=== PATIENT | female | born 1995 | race Caucasian/White ===

== ENCOUNTER 2017-02-02 11:12 | Emergency (ER) | payer MEDICAID ==
[2017-02-02] MEDS ORDERED: ACETAMINOPHEN 325 MG TABLET PO ONE (11:45)
--- NOTE | 2017-02-02 11:46 | ER Document Report ---
ED Medical Screen (RME) - General Chief Complaint: Vaginal Bleeding Stated Complaint: VAGINAL BLEEDING Time seen by provider: 11:45 Mode of Arrival: Ambulatory Information source: Patient Notes: 21-year-old started having left lower pelvic cramping and vaginal bleeding on Thursday. She was seen at [facility]. She was put in a room and told that she had ectopic she left before completing the visit. No ultrasound was done. She had a positive home test 2 weeks ago. No dysuria. TRAVEL OUTSIDE OF THE [place] IN LAST 30 DAYS: No - Related Data Allergies/Adverse Reactions: hydrocodone Allergy (Verified 02/02/17 11:24) Past Medical History Renal/ Medical History: Denies: Hx Peritoneal Dialysis GI Medical History: Reports: Hx Gastroesophageal Reflux Disease, Hx Hepatitis - Hepatitis C Musculoskeltal Medical History: Reports Hx Musculoskeletal Deformity, Reports Hx Musculoskeletal Trauma Psychiatric Medical History: Reports: Hx Depression Infectious Medical History: Reports: Hx Hepatitis - Hepatitis C - Immunizations Immunizations up to date: Yes Hx Diphtheria, Pertussis, Tetanus Vaccination: Yes - states at age 16- Physical Exam - Vital signs Vitals: Temp Pulse Resp BP Pulse Ox 98.5 F 74 18 147/95 H 98 02/02/17 11:26 02/02/17 11:26 02/02/17 11:26 02/02/17 11:26 02/02/17 11:26 Course - Vital Signs Vital signs: Temp Pulse Resp BP Pulse Ox 98.5 F 74 18 147/95 H 98 02/02/17 11:26 02/02/17 11:26 02/02/17 11:26 02/02/17 11:26 02/02/17 11:26
[2017-02-02 12:23] LABS: ABSOLUTE EOSINOPHILS # (AUTO) 0.1 10^3/uL (0.0-0.6); ABSOLUTE MONOCYTES (AUTO) 0.5 10^3/uL (0.1-1.4); ABSOLUTE NEUT (AUTO) 7.3 10^3/uL (1.7-8.2); BASOPHILS % (AUTO) 0.3 % (0-2); EOSINOPHILS % (AUTO) 1.3 % (0-6); HEMATOCRIT 33.1 % (36.0-47.0); HEMOGLOBIN 11.4 g/dL (12.0-15.5); HGB HCT DIFFERENCE 1.1; LYMPHOCYTES % (AUTO) 20.2 % (13-45); MEAN CORPUSCULAR HEMOGLOBIN 30.4 pg (27.0-33.4); MEAN CORPUSCULAR HGB CONC 34.5 g/dL (32.0-36.0); MEAN CORPUSCULAR VOLUME 88 fl (80-97); MONOCYTES % (AUTO) 4.8 % (3-13); RED BLOOD COUNT 3.76 10^6/uL (3.72-5.28); RED CELL DISTRIBUTION WIDTH 13.4 % (11.5-14.0); SEGMENTED NEUTROPHILS % (AUTO) 73.4 % (42-78); WHITE BLOOD COUNT 9.9 10^3/uL (4.0-10.5)
--- NOTE | 2017-02-02 12:23 | ER Document Report ---
ED General - General Mode of Arrival: Ambulatory Information source: Patient, [facility] Records TRAVEL OUTSIDE OF THE [place] IN LAST 30 DAYS: No - HPI Patient complains to provider of: Vaginal Bleeding Onset: Other - 01/31/2017 Onset/Duration: Sudden, Persistent Associated symptoms: Other - Abdominal Cramping <TOMMY MELTON - Last Filed: 02/02/17 12:33> <FILIPE SAUL - Last Filed: 02/02/17 15:21> - General Chief Complaint: Vaginal Bleeding Stated Complaint: VAGINAL BLEEDING Notes: Patient is a 21-year-old female, with history of smoking, irregular periods , and hepatitis C, presenting to the emergency department concerned of vaginal bleeding onset 01/31/2017. Patient describes the bleeding as dark blood with clotting. The patient was seen at [facility], but left after 3 hours because she felt that they did not care about her. Patient attempted to get an appointment with her S[facility], but there were no available appointments. Now patient is here at [facility] trying to figure out what is going on. Patient states that she was told it was probably an ectopic while in the hospital and [facility], but she did not have an ultrasound performed. Patient complains of cramping along with the bleeding. (TOMMY MELTON) - Related Data Allergies/Adverse Reactions: hydrocodone Allergy (Verified 02/02/17 12:27) Past Medical History - General Information source: Patient Last Menstrual Period: unknown - Social History Smoking Status: Current Every Day Smoker Cigarette use (# per day): Yes - one half pack per day Family History: Arthritis, CVA, Malignancy, Other Patient has suicidal ideation: No Patient has homicidal ideation: No GI Medical History: Reports: Hx Gastroesophageal Reflux Disease, Hx Hepatitis - Hepatitis C Musculoskeltal Medical History: Reports Hx Musculoskeletal Deformity, Reports Hx Musculoskeletal Trauma Psychiatric Medical History: Reports: Hx Depression Infectious Medical History: Reports: Hx Hepatitis - Hepatitis C - Immunizations Immunizations up to date: Yes Hx Diphtheria, Pertussis, Tetanus Vaccination: Yes - states at age 16- <TOMMY MELTON - Last Filed: 02/02/17 12:33> Review of Systems - Review of Systems Constitutional: No symptoms reported EENT: No symptoms reported Cardiovascular: No symptoms reported Respiratory: No symptoms reported Gastrointestinal: See HPI, Abdominal pain - Cramping left lower quadrant Genitourinary: No symptoms reported Female Genitourinary: See HPI, Vaginal bleeding - Dark with clotting Musculoskeletal: No symptoms reported Skin: No symptoms reported Hematologic/Lymphatic: No symptoms reported Neurological/Psychological: No symptoms reported -: Yes All other systems reviewed and negative <TOMMY MELTON - Last Filed: 02/02/17 12:33> Physical Exam - General General appearance: Appears well, Alert - HEENT Head: Normocephalic, Atraumatic Eyes: Normal Pupils: PERRL - Respiratory Respiratory status: No respiratory distress Chest status: Nontender Breath sounds: Normal Chest palpation: Normal - Cardiovascular Rhythm: Regular Heart sounds: Normal auscultation Murmur: No - Abdominal Inspection: Gravid female Distension: Other - Gas sounds upper abdomen Tenderness: Tender - Lower abdominal tenderness to palpation, firm - Back Back: Normal, Nontender - Extremities General upper extremity: Normal inspection, Nontender General lower extremity: Normal inspection, Nontender - Neurological Neuro grossly intact: Yes Cognition: Normal Orientation: AAOx4 Wells Coma Scale Eye Opening: Spontaneous Miko Coma Scale Verbal: Oriented Wells Coma Scale Motor: Obeys Commands Wells Coma Scale Total: 15 Speech: Normal - Psychological Associated symptoms: Normal affect, Normal mood - Skin Skin Temperature: Warm Skin Moisture: Dry Skin Color: Normal <TOMMY MELTON - Last Filed: 02/02/17 12:33> Course - Laboratory Result Diagrams: 02/02/17 12:00 <TOMMY MELTON - Last Filed: 02/02/17 12:33> - Laboratory Result Diagrams: 02/02/17 12:00 <FILIPE SAUL - Last Filed: 02/02/17 15:21> - Vital Signs Vital signs: Temp Pulse Resp BP Pulse Ox 98.5 F 74 18 147/95 H 98 02/02/17 11:26 02/02/17 11:26 02/02/17 11:26 02/02/17 11:26 02/02/17 11:26 - Laboratory Laboratory results interpreted by de: 02/02/17 02/02/17 02/02/17 12:00 12:00 12:05 Hgb 11.4 L Hct 33.1 L Beta HCG, Quant 49651.00 H Urine Protein 30 H Ur Leukocyte Esterase SMALL H Discharge <TOMMY MELTON - Last Filed: 02/02/17 12:33> <FILIPE SAUL - Last Filed: 02/02/17 15:21> - Discharge Clinical Impression: 16 weeks gestation of , Vaginal bleeding before 22 weeks gestation, Rh negative status during in second trimester Condition: Stable Disposition: HOME, SELF-CARE Additional Instructions: Your ultrasound shows a 16 week 3 day intrauterine . There were no other abnormalities seen on ultrasound. You should follow-up this week with [facility] for care and recheck your bleeding. RETURN TO THE EMERGENCY ROOM IF ANY NEW OR WORSENING SYMPTOMS. Scribe Attestation: 02/02/17 15:21 I personally performed the services described in the documentation, reviewed and edited the documentation which was dictated to the scribe in my presence, and it accurately records my words and actions. (FILIPE SAUL) Scribe Documentation - Scribe Written by Mae:: Tommy Melton 02/02/2017 1222 acting as scribe for :: Marianne <TOMMY MELTON - Last Filed: 02/02/17 12:33>
[2017-02-02 12:24] LABS: ADD ON TESTING BLD IN LAB ACKNOWLEDGE
[2017-02-02 12:35] LABS: APPEARANCE,URINE SLIGHTLY-CLOUDY; BILIRUBIN,URINE NEGATIVE (NEGATIVE); GLUCOSE, URINE NEGATIVE (NEGATIVE); KETONES,URINE NEGATIVE (NEGATIVE); LEUKOCYTE ESTERASE,URINE SMALL (NEGATIVE); NITRITE,URINE NEGATIVE (NEGATIVE); PROTEIN,URINE 30 mg/dL (NEGATIVE); URINE SPECIFIC GRAVITY 1.019; UROBILINOGEN,URINE NEGATIVE mg/dL (<2.0)
[2017-02-02 15:49] VITALS: BP 117/78
== END 2017-02-02 15:40 | disposition home or self-care (01) ==
LOC: ER 11:12
DX: O20.9 Hemorrhage in early pregnancy, unspecified (principal); O36.0920 Maternal care for other rhesus isoimmunization, second trimester, not applicable or unspecified; O26.892 Other specified pregnancy related conditions, second trimester; R10.32 Left lower quadrant pain; O99.332 Smoking (tobacco) complicating pregnancy, second trimester; F17.210 Nicotine dependence, cigarettes, uncomplicated; Z3A.16 16 weeks gestation of pregnancy; Z86.19 Personal history of other infectious and parasitic diseases; Z88.5 Allergy status to narcotic agent
CPT/HCPCS: 99284; 86900; 86901; 36415; 87086; 86850; 84702; 85025; 87088; 81001; 87186; 76805; J2790

== ENCOUNTER → 2017-03-25 | Outpatient (CLI) | payer MEDICAID ==
--- NOTE | 2017-03-25 16:55 | RADIOLOGY REPORT (SQ) ---
EXAM DESCRIPTION: U/S OB 14+ TRNABD 1GES W/O DOP COMPLETED DATE/TIME: 03/25/2017 4:24 pm REASON FOR STUDY: Z34.82 ENCOUNTER FOR SUPRVSN OF NORMAL , SECOND TRI COMPARISON: 02/02/2017 TECHNIQUE: Static and Dynamic grayscale imaging performed of gravid uterus using transabdominal appr oach. Additional selected color Doppler and spectral images recorded. All stored on PACS. LIMITATIONS: None. FINDINGS: EGA: 23 weeks 2 days. GAGE: 07/20/2017. EFW: 568 g. PERCENTILE: 34 is JOSIAS: Largest pocket is 3.4 cm. PLACENTA: Posterior location. PRESENTATION: Breech. ANATOMY: HEART RATE: 152 beats per minute. FOUR CHAMBER HEART: Visualized. THREE VESSEL CORD: Yes. CORD INSERTION: Visualized. KIDNEYS AND BLADDER: Visualized. Appear normal. STOMACH: Visualized. Appears normal. SPINE: Normal as visualized. BRAIN AND LATERAL VENTRICLES: Visualized. Appear normal. OTHER: No other significant finding. MATERNAL ADNEXA: Not visualized. CERVICAL LENGTH: 2.9 cm. Closed. OTHER: No other significant finding. IMPRESSION: LIVING INTRAUTERINE . ESTIMATED GESTATIONAL AGE 23 WEEKS 2 DAYS. NO VISUALIZED ANOMALIES. Trimester of : Second trimester - 13 weeks 1 day to 27 weeks 6 days. TECHNICAL DOCUMENTATION: JOB ID: [id number]- All Rights Reserved
== END ==
LOC: RAD 14:42
PROVIDERS: ATTEND Nurse Practitioner Women's Health
DX: Z34.82 Encounter for supervision of other normal pregnancy, second trimester (principal)
CPT/HCPCS: 76805

== ENCOUNTER 2017-06-29 21:15 | Outpatient (CLI) | payer MEDICAID ==
[2017-06-29 21:43] LABS: APPEARANCE,URINE CLOUDY; BILIRUBIN,URINE NEGATIVE (NEGATIVE); GLUCOSE, URINE NEGATIVE (NEGATIVE); KETONES,URINE NEGATIVE (NEGATIVE); LEUKOCYTE ESTERASE,URINE SMALL (NEGATIVE); NITRITE,URINE NEGATIVE (NEGATIVE); PROTEIN,URINE NEGATIVE (NEGATIVE)
[2017-06-29 22:01] LABS: URINE BARBITURATES SCREEN NEGATIVE; URINE METHADONE SCREEN NEGATIVE; URINE OPIATES LOW NEGATIVE; URINE PHENCYCLIDINE SCREEN NEGATIVE
== END 2017-06-29 23:19 | disposition home or self-care (01) ==
LOC: LC 21:15
PROVIDERS: ATTEND Student in an Organized Health Care Education/Training Program
PROC: 4A1HXCZ Monitoring of Products of Conception, Cardiac Rate, External Approach (ICD-10-PCS; principal; 2017-06-29)
DX: O36.8130 Decreased fetal movements, third trimester, not applicable or unspecified (principal); O46.93 Antepartum hemorrhage, unspecified, third trimester; Z3A.37 37 weeks gestation of pregnancy
CPT/HCPCS: 80307; 81005

== ENCOUNTER 2017-07-13 05:22 | Inpatient (IN) | payer MEDICAID ==
--- NOTE | 2017-07-13 05:28 | Non Stress Test Report ---
Non Stress Test Datetime Report Generated by CPN: 07/13/2017 05:28 DEMOGRAPHIC EGA NST: 37.3 INDICATION Indication for Study: Decreased Movement; Ordered by Provider MONITORING Monitor Explained: Monitor Explained; Test Explained; Patient Verbalized Understanding Time on Monitor: 06/29/2017 21:30 Time off Monitor: 06/29/2017 23:14 NST Duration: 104 NST INTERVENTIONS NST Interventions: PO Hydration; Reposition Patient BABY A: [id number] BABY A Movement : Present Contraction Frequency : none FHR Baseline : 125 Accelerations : 15X15 Decelerations : None Variability : Moderate 6-25bpm NST Review: Meets Criteria for Reactive NST NST Review and Verified By : Skylar JuradoGabe RN NST Results: Reactive NST REPORT Report Trigger: Send Report
[2017-07-13 06:01] LABS: APPEARANCE,URINE CLOUDY; BILIRUBIN,URINE NEGATIVE (NEGATIVE); GLUCOSE, URINE NEGATIVE (NEGATIVE); KETONES,URINE NEGATIVE (NEGATIVE); LEUKOCYTE ESTERASE,URINE SMALL (NEGATIVE); NITRITE,URINE NEGATIVE (NEGATIVE); PROTEIN,URINE NEGATIVE (NEGATIVE); URINE SPECIFIC GRAVITY 1.015; UROBILINOGEN,URINE NEGATIVE mg/dL (<2.0)
[2017-07-13 06:32] LABS: URINE BARBITURATES SCREEN NEGATIVE; URINE METHADONE SCREEN NEGATIVE; URINE OPIATES LOW NEGATIVE; URINE PHENCYCLIDINE SCREEN NEGATIVE
[2017-07-13] MEDS ORDERED: RINGERS SOLUTION,LACTATED 1,000 ML IV ONE (06:55)
[2017-07-13] MEDS ORDERED: PENICILLIN G POTASSIUM 5,000,000 UNIT in DEXTROSE 5%-WATER 100 ML IV ONE (06:55)
[2017-07-13] MEDS ORDERED: PENICILLIN G-K 5 MILLION UNIT VIAL ONE ×2 (07:17→11:11)
[2017-07-13 07:29] LABS: ABSOLUTE BASOPHILS # (AUTO) 0.1 10^3/uL (0.0-0.2); ABSOLUTE EOSINOPHILS # (AUTO) 0.1 10^3/uL (0.0-0.6); ABSOLUTE LYMPHOCYTES (AUTO) 2.9 10^3/uL (0.5-4.7); ABSOLUTE MONOCYTES (AUTO) 0.7 10^3/uL (0.1-1.4); ABSOLUTE NEUT (AUTO) 15.1 10^3/uL (1.7-8.2); BASOPHILS % (AUTO) 0.6 % (0-2); EOSINOPHILS % (AUTO) 0.6 % (0-6); HEMATOCRIT 33.3 % (36.0-47.0); HEMOGLOBIN 11.5 g/dL (12.0-15.5); HGB HCT DIFFERENCE 1.2; LYMPHOCYTES % (AUTO) 15.3 % (13-45); MEAN CORPUSCULAR HEMOGLOBIN 29.6 pg (27.0-33.4); MEAN CORPUSCULAR HGB CONC 34.7 g/dL (32.0-36.0); MEAN CORPUSCULAR VOLUME 85 fl (80-97); MONOCYTES % (AUTO) 3.8 % (3-13); RED BLOOD COUNT 3.89 10^6/uL (3.72-5.28); RED CELL DISTRIBUTION WIDTH 13.6 % (11.5-14.0); SEGMENTED NEUTROPHILS % (AUTO) 79.7 % (42-78); WHITE BLOOD COUNT 18.9 10^3/uL (4.0-10.5)
[2017-07-13] MEDS ORDERED: MISOPROSTOL 0.2 MG TABLET ONE (07:56)
[2017-07-13] MEDS ORDERED: FENTANYL/BUPIVACAINE/NS/PF 200 MCG/100 ML RTUINJ EPI ONE (07:57)
[2017-07-13] MEDS ORDERED: BUPIVACAINE HCL 0.25 % INJ/PF (2.5 MG/1 ML) 30 ML VIAL ONE (07:57)
[2017-07-13] MEDS ORDERED: EPHEDRINE SULFATE INJ 50 MG/1 ML AMPULE ONE (07:57)
[2017-07-13] MEDS ORDERED: OXYTOCIN/NORMAL SALINE 20 UNIT/1,000 ML RTUINJ ONE (07:57)
[2017-07-13] MEDS ORDERED: LIDOCAINE 1% INJ-PF (10 MG/ML) 30 ML SDV ONE (07:57)
--- NOTE | 2017-07-13 09:55 | L&D Progress Notes ---
PROGRESS NOTES Datetime Report Generated by CPN: 07/13/2017 09:55 PROGRESS NOTE Impression: Reassuring Heart Rate Plan: Continue Present Management Comment: Cat 1 strip, comfortable with epidural, irreg uc's SIGNATURE SIGNATURE: ,[id number] SIGNATURE: ,[id number] Assignment: Deja Razo MD Signature: with User ID: [email or web address] : with User ID: [email or web address]
[2017-07-13] MEDS: PENICILLIN G POTASSIUM 2,500,000 UNIT in DEXTROSE 5%-WATER 50 ML IV SCH ×3 (11:17→19:27)
[2017-07-13] MEDS ORDERED: MAG HYDROX/AL HYDROX/SIMETH SUSP 30 ML UDCUP ONE (11:55)
--- NOTE | 2017-07-13 11:57 | L&D Progress Notes ---
PROGRESS NOTES Datetime Report Generated by N: 07/13/2017 11:57 Procedures: Sterile Vag Exam Plan: Continue Present Management Vital Signs : Reviewed Comment: VE /vtx/0 AROM= thick mec, irreg uc's, comfortable with epidural, feeling urge to push FHR - Baseline: 125 Monitoring: External US Variability: Moderate 6-25bpm Decelerations: Early Assignment: Deja Razo MD Signature: with User ID: [email or web address] : with User ID: [email or web address]
[2017-07-13] MEDS ORDERED: PROMETHAZINE HCL 25 MG SUPP.RECT PR PRN (15:13)
[2017-07-13] MEDS ORDERED: PROMETHAZINE HCL INJ 25 MG/1 ML VIAL IV PRN (15:13)
[2017-07-13] MEDS ORDERED: NA PHOS,M-B/NA PHOS,DI-BA (ADULT) 133 ML ENEMA PR PRN (15:13)
[2017-07-13] MEDS ORDERED: BENZOCAINE/MENTHOL AEROSOL SPRAY 56 ML TOP PRN (15:13)
[2017-07-13] MEDS ORDERED: DIPH/PERTUSS(ACELL)/TETANUS VAC/PF 0.5 ML SYR (>=10YO) IM PRN (15:13)
[2017-07-13] MEDS ORDERED: DIPHENHYDRAMINE HCL 25 MG CAPSULE PO PRN (15:13)
[2017-07-13] MEDS ORDERED: ACETAMINOPHEN WITH CODEINE #3 TABLET PO PRN ×2 (15:13)
[2017-07-13] MEDS ORDERED: ACETAMINOPHEN 650 MG SUPP.RECT PR PRN (15:13)
[2017-07-13] MEDS ORDERED: OXYTOCIN/NORMAL SALINE 20 UNIT/1,000 ML RTUINJ IV PRN (15:13)
[2017-07-13] MEDS ORDERED: PROMETHAZINE HCL 25 MG TABLET PO PRN (15:13)
[2017-07-13] MEDS ORDERED: PSEUDOEPHEDRINE HCL 30 MG TABLET PO PRN (15:13)
[2017-07-13] MEDS ORDERED: DIBUCAINE 1% OINTMENT 28 GM TP PRN (15:13)
[2017-07-13] MEDS ORDERED: MAGNESIUM HYDROXIDE SUSP 30 ML UDCUP PO PRN (15:13)
[2017-07-13] MEDS ORDERED: MISOPROSTOL 0.2 MG TABLET PR PRN (15:13)
[2017-07-13] MEDS ORDERED: MEASLES,MUMPS&RUBELLA VACC/PF 0.5 ML VIAL SUBCUT PRN (15:13)
[2017-07-13] MEDS ORDERED: GLYCERIN/WITCH HAZEL LEAF 1 EACH MED..PAD TP PRN (15:13)
--- NOTE | 2017-07-13 16:19 | Delivery Summary ---
Del Sum A-C Datetime Report Generated by CPN: 07/13/2017 16:18 DELIVERY PERSONNEL DELIVERY PERSONNEL: [id number] Delivery Doctor:: Katya Sanchez CNM Labor and Delivery Nurse:: Ashley Goncalves RN Nursery Nurse:: Destiney Edwards RN Student Observers:: Jose Raul Conklin -medical student Nakul Etienne - medical student Electric Power Line Repairer/SOCIAL WORKER DELINQUENCY PREVENTION: Fartun Calderon, ST MATERNAL INFORMATION Delivery Anesthesia: Epidural Medications After Delivery: Pitocin Bolus-Please Comment; Pitocin Drip 20 Units/1000ml NSS; Cytotec 600mcg Per Rectum/Vagina Estimated Blood Loss (ml): 300 Maternal Complications: None Provider Comments: Pt pushing longer than other deliveries, using Conner, turned to Left side, , direct OP, double nuchal cord, easily reduced, thick meconium over intact perineum. Placed on mothers abd,cord clamped after 2 minutes and cut by FOB, cord blood obtained and sent to lab, nursery in attendance for delivery. Spont delivery of grossly normal intact placenta, 3 VC, EBL 300cc. FFFM. IV Pitocin, uterine massage and cytotec 600 mcg. Baby and mama remain in recovery in stable condition Pt + Hep C LABOR SUMMARY EDC: 07/17/2017 00:00 No. Babies in Womb: 1 Attempted: No Labor Anesthesia: Epidural LABOR INFORMATION Reason for Induction: Not Applicable Onset of Labor: 07/13/2017 05:39 Complete Dilatation: 07/13/2017 14:03 Oxytocin: Augmentation Group B Beta Strep: positive Antibiotics # of Doses: 2 Antibiotics Time of Last Dose: 1119 Name of Antibiotic Given: PCN Steroids Given: None Reason Steroids Not Administered: Not Applicable MEMBRANES Membranes Rupture Method: Artificial Rupture of Membranes: 07/13/2017 11:25 Length of Rupture (hr): 3.25 Amniotic Fluid Color: Heavy Meconium Amniotic Fluid Amount: Large Amniotic Fluid Odor: Normal STAGES OF LABOR Stage 1 hr: 8 Stage 1 min: 24 Stage 2 hr: 0 Stage 2 min: 37 Stage 3 hr: 0 Stage 3 min: 7 Total Time in Labor hr: 9 Total Time in Labor min: 8 VAGINAL DELIVERY Episiotomy: None Laceration #1: None Laceration Extension #1: N/A Laceration Repair: Not Applicable Sponge Count Correct: N/A Sharps Count Correct: N/A CSECTION DELIVERY Primary Indication: N/A Secondary Indication: N/A CSection Incidence: N/A Labor: N/A Elective: N/A CSection Incision: N/A BABY A INFORMATION Infant Delivery Date/Time: 07/13/2017 14:40 Method of Delivery: Vaginal Born in Route : No : N/A Forceps: N/A Vacuum Extraction: N/A Shoulder Dystocia : No PRESENTATION/POSITION BABY A Presentation: Cephalic Cephalic Presentation: Vertex Vertex Position: Occiput posterior Breech Presentation: N/A PLACENTA INFORMATION BABY A Placenta Delivery Time : 07/13/2017 14:47 Placenta Method of Delivery: Spontaneous Placenta Status: Delivered SCORES BABY A Heart Rate 1 min: >100 bpm Resp Effort 1 min: Good Cry Reflex Irritability 1 min: Cough or Sneeze or Pulls Away Muscle Tone 1 min: Active Motion Color 1 min: Blue/Pale Resuscitation Effort 1 min: Tactile Stimulation SCORE 1 MIN: 8 Heart Rate 5 min: >100 bpm Resp Effort 5 min: Good Cry Reflex Irritability 5 min: Cough or Sneeze or Pulls Away Muscle Tone 5 min: Active Motion Color 5 min: Body [place], Extremities Blue Resuscitation Effort 5 min: Tactile Stimulation SCORE 5 MIN: 9 INFANT INFORMATION BABY A Gestational Age at Delivery: 39.3 Gestational Status: Full Term- 39- 40.6 Weeks Infant Outcome : Liveborn Infant Condition : Stable Infant Sex: Male IDENTIFICATION BABY A Infant Verification Date/Time: 07/13/2017 15:41 ID Band Number: [id number] Mother's Name Verified: Yes RN Verifying : AIsela Goncalves RN BL Alem RN WEIGHT/LENGTH BABY A Infant Birthweight (gm): 3325 Weight (lb): 7 Weight (oz): 5 Length (in): 21.50 Infant Length (cm): 54.61 CORD INFORMATION BABY A No. Cord Vessels: 3 Nuchal Cord : Around Neck x2, Loose Cord Blood Taken: Yes-For Eval (Mom's Blood Type - or O+) Infant Suction: Mouth; Nose ASSESSMENT BABY A Infant Complications: Multiple Variable Decels; Meconium Physical Findings at Delivery: Within Normal Limits Infant Respirations: Appears Normal Skin to Skin: Yes Wool Spotter/ALS Called : No Infant Care By: Lang Edwards RN Transferred To: Remains with Mother BABY B INFORMATION : N/A
[2017-07-13] MEDS: DOCUSATE SODIUM 100 MG CAPSULE PO SCH (17:41)
[2017-07-13] MEDS: FERROUS SULFATE 325 MG TABLET PO SCH (17:41)
[2017-07-13] MEDS: IBUPROFEN 800 MG TABLET PO SCH (21:41)
[2017-07-13] MEDS: ZOLPIDEM TARTRATE 5 MG TABLET PO SCH (21:41)
[2017-07-13] MEDS: FAMOTIDINE 20 MG TABLET PO SCH (21:42)
[2017-07-13] MEDS ORDERED: AMPICILLIN SOD/SULBACTAM 3 GM VIAL IV PRN (23:02)
[2017-07-13] MEDS: AMPICILLIN SODIUM/SULBACTAM NA 3 GM in NORMAL SALINE 100 ML IV SCH (23:09)
[2017-07-14] MEDS: IBUPROFEN 800 MG TABLET PO SCH ×3 (05:20→21:27)
[2017-07-14] MEDS: AMPICILLIN SODIUM/SULBACTAM NA 3 GM in NORMAL SALINE 100 ML IV SCH ×2 (05:20→14:54)
[2017-07-14 07:13] LABS: HEMATOCRIT 25.1 % (36.0-47.0); MEAN CORPUSCULAR HEMOGLOBIN 29.5 pg (27.0-33.4); MEAN CORPUSCULAR HGB CONC 34.7 g/dL (32.0-36.0); MEAN CORPUSCULAR VOLUME 85 fl (80-97); RED BLOOD COUNT 2.96 10^6/uL (3.72-5.28); WHITE BLOOD COUNT 14.7 10^3/uL (4.0-10.5)
[2017-07-14 07:14] LABS: HEMOGLOBIN 8.7 g/dL (12.0-15.5)
--- NOTE | 2017-07-14 09:17 | PDOC PROGRESS REPORT ---
Subjective-OB Subjective: Post Delivery Day: 1 22 year old. Denies any needs at this time, states pain well controlled, lochia is stable, voiding without difficulty. Physical Exam (OB) Vital Signs: Temp Pulse Resp BP Pulse Ox 98.0 F 60 16 109/67 99 07/14/17 08:26 07/14/17 08:26 07/14/17 08:26 07/14/17 08:26 07/14/17 08:26 Intake & Output 07/13/17 07/14/17 07/15/17 06:59 06:59 06:59 Weight 60.9 kg - PIH/Pre-Eclampsia Clonus: Negative - Lochia Lochia Amount: Small 10-25 ml Lochia Color: Rubra/Red - Abdomen Description: Soft, Round Hernia Present: No Fundal Description: Firm, Non-Midline Describe if Not Midline: offsite to right Fundal Height: u/u - u/2 Objective-Diagnostic Laboratory: 07/14/17 06:46 07/14/17 06:46 WBC 14.7 H RBC 2.96 L Hgb 8.7 L D Hct 25.1 L MCV 85 MCH 29.5 MCHC 34.7 RDW 13.0 Plt Count 202 Assessment and Plan(PN) - Assessment and Plan (1) Anemia Qualifiers: Anemia type: unspecified type Qualified Code(s): D64.9 - Anemia, unspecified Is this a current diagnosis for this admission?: Yes Plan: ferrous sulfate increase dietary iron (2) Delivery normal Is this a current diagnosis for this admission?: Yes Plan: routine pp care - Time Spent with Patient Time with patient: Less than 15 minutes Critical Time spent with patient: Less than 15 minutes Medications reviewed and adjusted accordingly: Yes - Disposition Anticipated Discharge: Home Within: within 24 hours
[2017-07-14] MEDS ORDERED: PRENATAL VITAMIN W-O CA NO5/FE FUMARATE/FA CAPSULE PO SCH (10:00)
[2017-07-14] MEDS ORDERED: SENNOSIDES/DOCUSATE 8.6-50 MG 1 EACH TABLET PO SCH (10:00)
[2017-07-14] MEDS: DOCUSATE SODIUM 100 MG CAPSULE PO SCH ×2 (11:27→17:36)
[2017-07-14] MEDS: FERROUS SULFATE 325 MG TABLET PO SCH ×2 (11:27→17:35)
[2017-07-14] MEDS: FAMOTIDINE 20 MG TABLET PO SCH ×2 (11:37→21:27)
--- NOTE | 2017-07-14 17:31 | PDOC DISCHARGE SUMMARY ---
Final Diagnosis Discharge Date: 07/15/17 - Final Diagnosis (1) Anemia Is this a current diagnosis for this admission?: Yes (2) Delivery normal Is this a current diagnosis for this admission?: Yes Discharge Data - Discharge Medication Home Medications: Vits96/Iron Fum/Folic [ Tablet] 1 each PO DAILY 12/10/14 Cyclobenzaprine HCl [Flexeril 5 mg Tablet] 5 mg PO TID #15 tablet 07/22/16 Citalopram Hydrobromide [Citalopram HBr] 20 mg PO QHS 07/13/17 Docusate Sodium [Colace 100 mg Capsule] 100 mg PO BID #60 capsule 07/14/17 Ferrous Sulfate [Feosol 325 mg Tablet] 325 mg PO BID #60 tablet 07/14/17 Ibuprofen [Motrin 800 mg Tablet] 800 mg PO Q8 #60 tablet 07/14/17 Gestational Age: 39.3 Reason(s) for Admission: Onset of Labor, Group B Strep Positive Procedures: NST Intrapartum Procedure(s): Spontaneous Vaginal Delivery - [place] Data Baby 1 Male at 1 minute: 8 at 5 minutes: 9 Weight: 3325 kg Home with Mother: Yes Complications: No - Diagnosis Test Laboratory: Temp Pulse Resp BP Pulse Ox 98.1 F 65 15 117/67 99 07/14/17 15:44 07/14/17 15:44 07/14/17 15:44 07/14/17 15:44 07/14/17 15:44 07/13/17 07/13/17 07/14/17 05:31 07:05 06:46 RBC 3.89 2.96 L Hgb 11.5 L 8.7 L D Hct 33.3 L 25.1 L Urine Opiates Screen NEGATIVE - Discharge information/Instructions Discharge Activity: Activity As Tolerated, No Driving, Pelvic Rest, No tub bath Discharge Diet: Regular Disposition: HOME, SELF-CARE Follow up with: [facility] in: 1, Weeks
[2017-07-14] MEDS: ZOLPIDEM TARTRATE 5 MG TABLET PO SCH (21:59)
[2017-07-15] MEDS: IBUPROFEN 800 MG TABLET PO SCH (05:09)
[2017-07-15 08:14] VITALS: BP 148/88
--- NOTE | 2017-08-06 08:36 | Admission Physical ---
Datetime Report Generated by CPN: 08/06/2017 08:35 CURRENT ADMISSION Chief Complaint: Uterine Contractions Indication for Induction: Not Applicable Indication for Induction: Term, Intrauterine ; Active Labor; Intact Membranes Admit Plan: Admit to Unit; Initiate Labor Augmentation Protocol ALLERGIES Medication Allergies: Yes Medication Allergies: hydrocodone (02/02/2017) Medication Allergies: No Known Allergies (07/22/2016) Medication Allergies: No Known Allergies (12/10/2014) Latex: No Latex Allergies Food Allergies: N/A Environmental Allergies: N/A OBSTETRICAL HISTORY EDC: 07/17/2017 00:00 EDC: 07/17/2017 00:00 : 3 : 3 Para: 2 Para: 2 Term: 2 : 0 SAB: 0 IAB: 0 Ectopic: 0 Livin Cesareans: 0 VBACs: 0 Multiple Births: 0 Gestational Diabetes: No Rh Sensitization: No Incompetent Cervix: No RICH: No Infertility: No ART Treatment: No Uterine Anomaly: No IUGR: No Hx Previous C/S: No Macrosomia: No Hx Loss/Stillborn: No PIH: No Hx : No Placenta Previa/Abruption: No Depression/PP Depression: Yes PTL/PROM: No Post Hemorrhage: No Current Procedures: Ultrasound; NST Obstetrical History Comments: - 2011 7 lb 5 oz male G2- 2014 6 lb 12 oz female G3- current, late PNC, rhogam 02-02-17 in ER and 04-27-17 at [facility] SEE RECORDS Alcohol: No Marijuana : No Cocaine: No Other Illicit Drugs: No Cigarettes: Never Smoker. 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 Surgery: No Heart Disease: No Hosp/Surgery: Yes Autoimmune Disorder: No Anesthetic Complications: No Kidney Disease: Yes Abnormal Pap Smear: No Neuro/Epilepsy: No Psychiatric Disorders: Yes Other Medical Diseases: No Hepatitis/Liver Disease: No Significant Family History: No Varicosities/Phlebitis: No Trauma/Violence : No Thyroid Dysfunction: No Medical History Comments: hep C, anxiety, UTI early this , anemia INFECTIOUS HISTORY Gonorrhea: No Genital Herpes: No Chlamydia: No Tuberculosis: No Syphilis: No Hepatitis: No HIV/AIDS Exposure: No Rash or Viral Illness: No HPV: No PHYSICAL EXAM General: Normal HEENT: Normal Neurologic: Normal Thyroid: Deferred Heart: Normal Lungs: Normal Breast: Deferred Back: Normal Abdomen: Normal Genitourinary Exam: Normal Extremities: Normal DTRs: Normal Pelvic Type: Adequate Vital Signs: Reviewed; Within Normal Limits VAGINAL EXAM Dilatation: 3 Effacement: 80 Station: -3 MEMBRANES Membranes: Intact FETUS A EGA: 39.3 Monitoring: External US FHR- Baseline: 140 Variability: Moderate 6-25bpm Accelerations: 15X15 Decelerations: None FHR Category: Category I Presentation: Vertex PLANS FOR LABOR AND DELIVERY Labor and Delivery: None Pain Management: Epidural Feeding Preference: Formula Benefit of Breast Feed Discussed: Yes Circumcision: Yes INFORMED CONSENT Signature: with User ID: [email or web address]
== END 2017-07-15 08:15 | disposition home or self-care (01) | DRG 774 ==
LOC: LC 05:22 → LR 06:59 → 2S 16:47
PROVIDERS: ADMIT Obstetrics & Gynecology; ATTEND Obstetrics & Gynecology
PROC: 10E0XZZ Delivery of Products of Conception, External Approach (ICD-10-PCS; principal; 2017-07-13)
DX: O99.334 Smoking (tobacco) complicating childbirth (principal); O98.42 Viral hepatitis complicating childbirth; O36.0930 Maternal care for other rhesus isoimmunization, third trimester, not applicable or unspecified; O99.344 Other mental disorders complicating childbirth; B18.2 Chronic viral hepatitis C; O69.81X0 Labor and delivery complicated by cord around neck, without compression, not applicable or unspecified; O77.0 Labor and delivery complicated by meconium in amniotic fluid; O99.824 Streptococcus B carrier state complicating childbirth; O76 Abnormality in fetal heart rate and rhythm complicating labor and delivery; O99.02 Anemia complicating childbirth; D64.9 Anemia, unspecified; F17.210 Nicotine dependence, cigarettes, uncomplicated; F41.9 Anxiety disorder, unspecified; Z3A.39 39 weeks gestation of pregnancy; Z37.0 Single live birth
CPT/HCPCS: 36415; 80307; 81005; 85025; 85027; 86592; 86850; 86870; 86900; 86901; 94760; J0295; J2540; J2590; J3490

== ENCOUNTER → 2020-02-15 | Outpatient (CLI) | payer SELFPAY ==
--- NOTE | 2020-02-15 16:16 | RADIOLOGY REPORT (SQ) ---
EXAM DESCRIPTION: U/S OB 14+ TRNABD 1GES W/O DOP IMAGES COMPLETED DATE/TIME: 02/15/2020 3:27 pm REASON FOR STUDY: Z34.82 ENCOUNTER FOR SUPRVSN OF NORMAL , SECOND TRIMESTER Z34.82 ENCOUNT ER FOR SUPRVSN OF NORMAL , SECOND TRI COMPARISON: None. TECHNIQUE: Static and Dynamic grayscale imaging performed of gravid uterus using transabdominal appr oach. Additional selected color Doppler and spectral images recorded. All stored on PACS. LIMITATIONS: None. FINDINGS: FETUSES SEEN:1 EGA: 24 weeks 6 days. Calculated using BPD,FL,HC,AC documented on images. GAGE: 05/31/2020. EFW: 723 grams LVP: 3.7 x 6.3 cm. PLACENTA: Posterior. PRESENTATION: Breech. ANATOMY: HEART RATE: 140 beats per minute. FOUR CHAMBER HEART: Visualized. THREE VESSEL CORD: Yes. CORD INSERTION: Visualized. KIDNEYS AND BLADDER: Visualized. Appear normal. STOMACH: Visualized. Appears normal. SPINE: Visualize. Appears normal. BRAIN AND LATERAL VENTRICLES: Visualized. Appear normal. OTHER: No other finding. MATERNAL ADNEXA: Unable to visualize the ovaries. CERVICAL LENGTH: 3.5 cm. Closed. OTHER: No other finding. IMPRESSION: SINGLE LIVE INTRAUTERINE . ESTIMATED GESTATIONAL AGE 24 weeks 6 days based on ultrasound (LMP is unknown). NO VISUALIZED ANOMALIES. Trimester of : Second trimester - 13 weeks 1 day to 27 weeks 6 days. TECHNICAL DOCUMENTATION: JOB ID: [id number] [email or web address]- All Rights Reserved Reading location - IP/workstation name: [email or web address]
== END ==
LOC: RAD 14:48
PROVIDERS: ATTEND Midwife
DX: Z34.82 Encounter for supervision of other normal pregnancy, second trimester (principal); Z3A.24 24 weeks gestation of pregnancy
CPT/HCPCS: 76805

== ENCOUNTER → 2020-03-05 | Outpatient (CLI) | payer OTHER ==
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
[2020-03-05 15:59] VITALS: BP 144/106
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
[2020-03-05 17:12] LABS: ABSOLUTE EOSINOPHILS # (AUTO) 0.1 10^3/uL (0.0-0.6); ABSOLUTE LYMPHOCYTES (AUTO) 2.1 10^3/uL (0.5-4.7); ABSOLUTE MONOCYTES (AUTO) 0.5 10^3/uL (0.1-1.4); ABSOLUTE NEUT (AUTO) 7.5 10^3/uL (1.7-8.2); BASOPHILS % (AUTO) 0.3 % (0-2); EOSINOPHILS % (AUTO) 0.8 % (0-6); HEMATOCRIT 26.7 % (36.0-47.0); HEMOGLOBIN 9.5 g/dL (12.0-15.5); LYMPHOCYTES % (AUTO) 20.8 % (13-45); MEAN CORPUSCULAR HGB CONC 35.7 g/dL (32.0-36.0); MEAN CORPUSCULAR VOLUME 87 fl (80-97); MONOCYTES % (AUTO) 4.5 % (3-13); PLATELET COUNT 277 10^3/uL (150-450); RED BLOOD COUNT 3.07 10^6/uL (3.72-5.28); RED CELL DISTRIBUTION WIDTH 13.1 % (11.5-14.0); SEGMENTED NEUTROPHILS % (AUTO) 73.6 % (42-78); TOTAL CELLS COUNTED % (AUTO) 100 %; WHITE BLOOD COUNT 10.2 10^3/uL (4.0-10.5)
[2020-03-05 18:44] LABS: APPEARANCE,URINE SLIGHTLY-CLOUDY; BILIRUBIN,URINE NEGATIVE (NEGATIVE); COLOR,URINE YELLOW; GLUCOSE, URINE NEGATIVE (NEGATIVE); KETONES,URINE NEGATIVE (NEGATIVE); LEUKOCYTE ESTERASE,URINE TRACE (NEGATIVE); NITRITE,URINE NEGATIVE (NEGATIVE); PROTEIN,URINE 30 mg/dL (NEGATIVE); URINE SPECIFIC GRAVITY 1.029
[2020-03-05 19:02] LABS: URINE BARBITURATES SCREEN NEGATIVE; URINE COCAINE SCREEN NEGATIVE; URINE MARIJUANA (THC) SCREEN NEGATIVE; URINE METHADONE SCREEN NEGATIVE; URINE PHENCYCLIDINE SCREEN NEGATIVE
[2020-03-05 21:07] LABS: CHLAM PCR DETECTED (NOT DETECT)
[2020-03-06 02:15] LABS: URINE BENZODIAZEPINES SCREEN UNCONFIRMED POSITIVE
[2020-03-07 07:05] LABS: HEPATITS B SURFACE ANTIGEN Negative (Negative)
== END ==
LOC: LC 15:45 → ER 15:45 → EDSTATUS 17:44
PROVIDERS: ATTEND Emergency Medicine
DX: O99.89 Other specified diseases and conditions complicating pregnancy, childbirth and the puerperium (principal); R10.32 Left lower quadrant pain; O16.2 Unspecified maternal hypertension, second trimester; O99.612 Diseases of the digestive system complicating pregnancy, second trimester; K21.9 Gastro-esophageal reflux disease without esophagitis; O99.332 Smoking (tobacco) complicating pregnancy, second trimester; O09.32 Supervision of pregnancy with insufficient antenatal care, second trimester; V49.9XXA Car occupant (driver) (passenger) injured in unspecified traffic accident, initial encounter; Z3A.27 27 weeks gestation of pregnancy; Z88.6 Allergy status to analgesic agent; Z86.19 Personal history of other infectious and parasitic diseases
CPT/HCPCS: 99284; 86900; 86901; 36415; 86850; 85025; 86762; 86592; 81001; 87340; 80307; 87491; 87591; 76815; J2790

== ENCOUNTER 2020-03-22 15:58 | Outpatient (CLI) | payer MEDICAID, OTHER ==
[2020-03-22 17:00] LABS: AMORPHOUS SEDIMENT,URINE TRACE /HPF; APPEARANCE,URINE CLOUDY; BILIRUBIN,URINE NEGATIVE (NEGATIVE); COLOR,URINE YELLOW; GLUCOSE, URINE NEGATIVE (NEGATIVE); KETONES,URINE NEGATIVE (NEGATIVE); LEUKOCYTE ESTERASE,URINE NEGATIVE (NEGATIVE); NITRITE,URINE NEGATIVE (NEGATIVE); PROTEIN,URINE NEGATIVE (NEGATIVE); URINE SPECIFIC GRAVITY 1.017; UROBILINOGEN,URINE NEGATIVE mg/dL (<2.0)
[2020-03-22 17:13] LABS: ABSOLUTE BASOPHILS # (AUTO) 0.1 10^3/uL (0.0-0.2); ABSOLUTE EOSINOPHILS # (AUTO) 0.1 10^3/uL (0.0-0.6); ABSOLUTE LYMPHOCYTES (AUTO) 2.7 10^3/uL (0.5-4.7); ABSOLUTE MONOCYTES (AUTO) 0.5 10^3/uL (0.1-1.4); ABSOLUTE NEUT (AUTO) 6.7 10^3/uL (1.7-8.2); BASOPHILS % (AUTO) 0.8 % (0-2); EOSINOPHILS % (AUTO) 1.4 % (0-6); HEMATOCRIT 27.6 % (36.0-47.0); HEMOGLOBIN 9.6 g/dL (12.0-15.5); LYMPHOCYTES % (AUTO) 26.5 % (13-45); MEAN CORPUSCULAR HEMOGLOBIN 30.1 pg (27.0-33.4); MEAN CORPUSCULAR VOLUME 86 fl (80-97); PLATELET COUNT 288 10^3/uL (150-450); RED BLOOD COUNT 3.21 10^6/uL (3.72-5.28); RED CELL DISTRIBUTION WIDTH 12.6 % (11.5-14.0); SEGMENTED NEUTROPHILS % (AUTO) 66.3 % (42-78); TOTAL CELLS COUNTED % (AUTO) 100 %
[2020-03-22 17:22] LABS: URINE BARBITURATES SCREEN NEGATIVE; URINE BENZODIAZEPINES SCREEN NEGATIVE; URINE COCAINE SCREEN NEGATIVE; URINE MARIJUANA (THC) SCREEN NEGATIVE; URINE METHADONE SCREEN NEGATIVE; URINE PHENCYCLIDINE SCREEN NEGATIVE
[2020-03-22 17:25] LABS: ALBUMIN 3.1 g/dL (3.5-5.0); ALKALINE PHOSPHATASE 83 U/L (38-126); ASPARTATE AMINO TRANSFERASE 31 U/L (14-36); BILIRUBIN,TOTAL 0.3 mg/dL (0.2-1.3); BLOOD UREA NITROGEN 8 mg/dL (7-20); CALCIUM 8.7 mg/dL (8.4-10.2); CARBON DIOXIDE 25 mmol/L (22-30); GLUCOSE 100 mg/dL (75-110); POTASSIUM 3.5 mmol/L (3.6-5.0); TOTAL PROTEIN 6.1 g/dL (6.3-8.2); URIC ACID 3.3 mg/dL (2.5-6.2)
[2020-03-22 17:30] LABS: CHLORIDE 104 mmol/L (98-107)
[2020-03-22 17:30] LABS: UR PRO/CREAT RATIO RESULT 0.1 mg/mg (0.0-0.2); URINE CREATININE 101.7 mg/dL (16-327); URINE PROTEIN 12.5 mg/dL (<12)
[2020-03-22 17:31] LABS: ANION GAP 5 (5-19)
--- NOTE | 2020-03-22 18:42 | RADIOLOGY REPORT (SQ) ---
EXAM DESCRIPTION: U/S OB LIMITED IMAGES COMPLETED DATE/TIME: 03/22/2020 6:21 pm REASON FOR STUDY: IUGR COMPARISON: 03/05/2020 TECHNIQUE: Limited transabdominal grayscale ultrasound for evaluation of specific requested obstetri kate parameters. LIMITATIONS: None. FINDINGS: CERVICAL LENGTH: 3.2 cm. Closed. JOSIAS: 22.4 cm. FHR: 139 beats per minute. PRESENTATION: Cephalic. PLACENTA: Posterior. ANATOMY: Not assessed OTHER: Ultrasound gestational age 32 weeks 0 days. IMPRESSION: LIMITED OBSTETRICAL ULTRASOUND WITH MEASURED PARAMETERS DELINEATED ABOVE. Trimester of : Third trimester - 28 weeks to delivery. TECHNICAL DOCUMENTATION: JOB ID: [id number] 2010 [employer]- All Rights Reserved Reading location - IP/workstation name: [email or web address]
== END 2020-03-22 18:35 | disposition home or self-care (01) ==
LOC: LC 15:58
PROVIDERS: ATTEND Obstetrics & Gynecology Gynecology
DX: O36.5930 Maternal care for other known or suspected poor fetal growth, third trimester, not applicable or unspecified (principal); O16.3 Unspecified maternal hypertension, third trimester; O09.33 Supervision of pregnancy with insufficient antenatal care, third trimester; Z3A.32 32 weeks gestation of pregnancy; Z88.6 Allergy status to analgesic agent
CPT/HCPCS: 59025; 36415; 83615; 84156; 84550; 82570; 85025; 80053; 81001; 80307 ×2; 76815; G0480

== ENCOUNTER 2020-04-03 12:44 | Outpatient (CLI) | payer MEDICAID ==
[2020-04-03 13:20] LABS: APPEARANCE,URINE SLIGHTLY-CLOUDY; BILIRUBIN,URINE NEGATIVE (NEGATIVE); GLUCOSE, URINE NEGATIVE (NEGATIVE); KETONES,URINE NEGATIVE (NEGATIVE); LEUKOCYTE ESTERASE,URINE SMALL (NEGATIVE); NITRITE,URINE NEGATIVE (NEGATIVE); PROTEIN,URINE 100 mg/dL (NEGATIVE); URINE SPECIFIC GRAVITY 1.024
[2020-04-03 13:23] LABS: COLOR,URINE DARK YELLOW
[2020-04-03 13:38] LABS: URINE BARBITURATES SCREEN NEGATIVE; URINE BENZODIAZEPINES SCREEN NEGATIVE; URINE COCAINE SCREEN NEGATIVE; URINE MARIJUANA (THC) SCREEN NEGATIVE; URINE METHADONE SCREEN NEGATIVE; URINE PHENCYCLIDINE SCREEN NEGATIVE
[2020-04-03] MEDS ORDERED: LABETALOL HCL 200 MG TABLET PO ONE (13:46)
[2020-04-03] MEDS ORDERED: LABETALOL HCL 200 MG TABLET ONE (13:50)
[2020-04-03 13:51] LABS: ABSOLUTE EOSINOPHILS # (AUTO) 0.1 10^3/uL (0.0-0.6); ABSOLUTE LYMPHOCYTES (AUTO) 2.5 10^3/uL (0.5-4.7); ABSOLUTE MONOCYTES (AUTO) 0.5 10^3/uL (0.1-1.4); ABSOLUTE NEUT (AUTO) 8.7 10^3/uL (1.7-8.2); BASOPHILS % (AUTO) 0.3 % (0-2); EOSINOPHILS % (AUTO) 1.2 % (0-6); HEMATOCRIT 26.9 % (36.0-47.0); HEMOGLOBIN 9.3 g/dL (12.0-15.5); LYMPHOCYTES % (AUTO) 20.8 % (13-45); MEAN CORPUSCULAR HEMOGLOBIN 29.6 pg (27.0-33.4); MEAN CORPUSCULAR HGB CONC 34.7 g/dL (32.0-36.0); MEAN CORPUSCULAR VOLUME 85 fl (80-97); MONOCYTES % (AUTO) 4.3 % (3-13); PLATELET COUNT 253 10^3/uL (150-450); RED BLOOD COUNT 3.16 10^6/uL (3.72-5.28); RED CELL DISTRIBUTION WIDTH 12.8 % (11.5-14.0); SEGMENTED NEUTROPHILS % (AUTO) 73.4 % (42-78); TOTAL CELLS COUNTED % (AUTO) 100 %; WHITE BLOOD COUNT 11.8 10^3/uL (4.0-10.5)
[2020-04-03 13:59] LABS: UR PRO/CREAT RATIO RESULT 0.3 mg/mg (0.0-0.2); URINE CREATININE 226.7 mg/dL (16-327); URINE PROTEIN 58.4 mg/dL (<12)
[2020-04-03 14:14] LABS: ALBUMIN 2.7 g/dL (3.5-5.0); ALKALINE PHOSPHATASE 102 U/L (38-126); ASPARTATE AMINO TRANSFERASE 27 U/L (14-36); BILIRUBIN,TOTAL 0.3 mg/dL (0.2-1.3); BLOOD UREA NITROGEN 10 mg/dL (7-20); CALCIUM 8.4 mg/dL (8.4-10.2); CARBON DIOXIDE 22 mmol/L (22-30); CHLORIDE 106 mmol/L (98-107); GLUCOSE 121 mg/dL (75-110); POTASSIUM 3.7 mmol/L (3.6-5.0); TOTAL PROTEIN 5.6 g/dL (6.3-8.2); URIC ACID 4.8 mg/dL (2.5-6.2)
[2020-04-03] MEDS ORDERED: LABETALOL HCL INJ 20 MG/4 ML DISP.SYRIN IV ONE ×2 (14:20→14:24)
[2020-04-03 14:23] LABS: ANION GAP 5 (5-19)
[2020-04-03] MEDS ORDERED: CEFTRIAXONE INJ 1000 MG VIAL IV ONE (14:58)
[2020-04-03] MEDS ORDERED: CEFTRIAXONE INJ 1000 MG VIAL ONE (15:03)
[2020-04-03] MEDS ORDERED: CEFTRIAXONE 2 GM/D5W RTU 2 GM/50 ML RTUPB IV ONE ×2 (16:00)
[2020-04-03 17:22] LABS: CHLAM PCR NOT DETECTED (NOT DETECT)
== END 2020-04-03 17:30 | disposition home or self-care (01) ==
LOC: LC 12:44
PROVIDERS: ATTEND Obstetrics & Gynecology
DX: O13.3 Gestational [pregnancy-induced] hypertension without significant proteinuria, third trimester (principal); O09.33 Supervision of pregnancy with insufficient antenatal care, third trimester; Z3A.31 31 weeks gestation of pregnancy; Z88.6 Allergy status to analgesic agent
CPT/HCPCS: 59025; 36415; 83615; 84156; 84550; 82570; 85025; 80053; 81001; 80307 ×2; 87491; 87591; G0480; J3490 ×2; J0696 ×2; 87086

== ENCOUNTER 2020-04-16 02:00 | Emergency (ER) | payer MEDICAID ==
[2020-04-16] MEDS ORDERED: LABETALOL HCL 200 MG TABLET PO ONE (02:25)
[2020-04-16] MEDS ORDERED: NORMAL SALINE 1000 ML 1,000 ML IV ONE ×2 (02:27→03:56)
--- NOTE | 2020-04-16 02:47 | RADIOLOGY REPORT (SQ) ---
CLINICAL HISTORY: right facial droop COMPARISON: 04/19/2016. TECHNIQUE: CT HEAD WITHOUT IV CONTRAST on 04/16/2020 2:24 AM CDT This exam was performed according to our departmental dose-optimization program, which includes automated exposure control, adjustment of the mA and/or kV according to patient size and/or use of iterative reconstruction technique. FINDINGS: There is no acute hemorrhage, mass effect or midline shift. Velez-white differentiation is preserved. There is no hydrocephalus. There is no significant volume loss for age. The calvarium is intact. Orbits and globes are unremarkable. The paranasal sinuses are clear. Mastoid air cells are clear. IMPRESSION: No acute intracranial findings.
[2020-04-16 03:22] LABS: ALBUMIN 2.9 g/dL (3.5-5.0); ALKALINE PHOSPHATASE 117 U/L (38-126); ASPARTATE AMINO TRANSFERASE 33 U/L (14-36); BILIRUBIN,TOTAL 0.3 mg/dL (0.2-1.3); BLOOD UREA NITROGEN 14 mg/dL (7-20); GLUCOSE 107 mg/dL (75-110); TOTAL PROTEIN 5.8 g/dL (6.3-8.2)
[2020-04-16 03:23] LABS: ABSOLUTE BASOPHILS # (AUTO) 0.1 10^3/uL (0.0-0.2); ABSOLUTE EOSINOPHILS # (AUTO) 0.2 10^3/uL (0.0-0.6); ABSOLUTE LYMPHOCYTES (AUTO) 3.2 10^3/uL (0.5-4.7); ABSOLUTE MONOCYTES (AUTO) 0.7 10^3/uL (0.1-1.4); ABSOLUTE NEUT (AUTO) 7.1 10^3/uL (1.7-8.2); BASOPHILS % (AUTO) 0.5 % (0-2); EOSINOPHILS % (AUTO) 1.9 % (0-6); HEMATOCRIT 28.8 % (36.0-47.0); LYMPHOCYTES % (AUTO) 28.1 % (13-45); MEAN CORPUSCULAR HEMOGLOBIN 29.3 pg (27.0-33.4); MEAN CORPUSCULAR HGB CONC 34.6 g/dL (32.0-36.0); MEAN CORPUSCULAR VOLUME 85 fl (80-97); MONOCYTES % (AUTO) 6.2 % (3-13); PLATELET COUNT 365 10^3/uL (150-450); SEGMENTED NEUTROPHILS % (AUTO) 63.3 % (42-78); TOTAL CELLS COUNTED % (AUTO) 100 %; WHITE BLOOD COUNT 11.3 10^3/uL (4.0-10.5)
[2020-04-16 03:28] LABS: CARBON DIOXIDE 23 mmol/L (22-30); CHLORIDE 107 mmol/L (98-107)
[2020-04-16 03:29] LABS: ANION GAP 4 (5-19)
--- NOTE | 2020-04-16 03:36 | ER Document Report ---
Entered by JUAN ANTONIO ARAIZA SCRIBE 04/16/20 0225 Acting as scribe for:WINNIE COTTER IV, MD ED General - General Chief Complaint: Facial Droop Stated Complaint: FACIAL NUMBNESS-33 WEEKS PREG Primary Care Provider: EDUIN EVANS MD [ACTIVE STAFF] - Follow up as needed Mode of Arrival: Wheelchair Information source: Patient, Emergency Med Personnel Notes: This 24 year old female patient, , currently x33 weeks presents to the ED today with complaints of right-sided facial droop and numbness that started around 1000 yesterday morning. Patient states that she thought that her eyelid was just swollen, so she didn't seek immediate medical evaluation. She states that when she woke up from a nap, the numbness worsened and her right eye was tearing, so she decided to come to the ED. She reports generalized weakness and a pressure to the back of her head, but denies headache, drooling, or slurred speech. Patient is noted to hypertensive with a BP of 151/111 in triage. She admits to hypertension during and takes 100 mg Labetalol BID. She is followed by [facility]. TRAVEL OUTSIDE OF THE [place] IN LAST 30 DAYS: No - Related Data Allergies/Adverse Reactions: hydrocodone Allergy (Verified 04/03/20 13:04) Past Medical History - General Information source: Patient, [facility] Records - Social History Smoking Status: Unknown if Ever Smoked Smoking Education Provided: No Family History: Reviewed & Not Pertinent, Arthritis, CVA, Malignancy, Other Patient has suicidal ideation: No Patient has homicidal ideation: No GI Medical History: Reports: Hx Gastroesophageal Reflux Disease, Hx Hepatitis - Hepatitis C Musculoskeletal Medical History: Reports Hx Musculoskeletal Deformity, Reports Hx Musculoskeletal Trauma Psychiatric Medical History: Reports: Hx Depression Infectious Medical History: Reports: Hx Hepatitis - Hepatitis C - Immunizations Immunizations up to date: Yes Hx Diphtheria, Pertussis, Tetanus Vaccination: Yes - states at age 16- Review of Systems - Review of Systems Constitutional: See HPI, Weakness EENT: See HPI, Tearing Cardiovascular: No symptoms reported Respiratory: No symptoms reported Gastrointestinal: No symptoms reported Genitourinary: No symptoms reported Female Genitourinary: See HPI, Musculoskeletal: No symptoms reported Skin: No symptoms reported Hematologic/Lymphatic: No symptoms reported Neurological/Psychological: See HPI, Numbness, Other - Facial droop. denies: Headaches -: Yes All other systems reviewed and negative Physical Exam - Vital signs Vitals: Pulse Resp BP Pulse Ox 89 18 151/111 H 99 04/16/20 02:03 04/16/20 02:03 04/16/20 02:03 04/16/20 02:03 - General General appearance: Alert In distress: None - HEENT Head: Normocephalic, Atraumatic Eyes: Normal Pupils: PERRL - Respiratory Respiratory status: No respiratory distress Chest status: Nontender Breath sounds: Normal Chest palpation: Normal - Cardiovascular Rhythm: Regular Heart sounds: Normal auscultation Murmur: No Friction rub: No Gallop: None auscultated - Abdominal Inspection: Gravid female Distension: Distended - appears gravid Bowel sounds: Normal Tenderness: Nontender - Abdomen soft Organomegaly: No organomegaly - Back Back: Normal, Nontender - Extremities General upper extremity: Normal inspection General lower extremity: Normal inspection. No: Edema - Neurological Speech: Normal Cranial nerves: Sensory deficit - Altered sensation on the right, Other - Right eyelid droop, involvement with the occipitofrontalis muscle on the right side in terms of loss of wrinkling, loss of nasolabial fold on the right side - Psychological Associated symptoms: Normal affect, Normal mood - Skin Skin Temperature: Warm Skin Moisture: Dry Skin Color: Normal Course - Re-evaluation Re-evalutation: 04/16/20 04:52 Results of ED MSE discussed with patient. All questions were answered prior to discharge. Emergency signs and symptoms, reasons to return to the emergency department discussed with patient. - Vital Signs Vital signs: Temp Pulse Resp BP Pulse Ox 97.9 F 89 13 151/111 H 99 04/16/20 02:09 04/16/20 02:09 04/16/20 02:09 04/16/20 02:09 04/16/20 02:09 - Laboratory Result Diagrams: 04/16/20 02:36 04/16/20 02:36 Laboratory results interpreted by me: 04/16/20 04/16/20 02:36 02:36 WBC 11.3 H RBC 3.40 L Hgb 10.0 L Hct 28.8 L Sodium 133.8 L Anion Gap 4 L Total Protein 5.8 L Albumin 2.9 L - Diagnostic Test Radiology reviewed: Reports reviewed - Consults Dr. Vannessa Costa, VETERINARY PHYSIOLOGIST Time consulted: 04:02 - Dr. Costa agreed with the plan to start the patient on antivirals and prednisone. Reason for consultation: 04/16/20 04:53 right facial droop, negative head ct, 33 weeks Discharge - Discharge Clinical Impression: Fuentes's palsy Condition: Stable Disposition: HOME, SELF-CARE Instructions: Fuentes's Palsy ([facility]), Steroid Medication Additional Instructions: Return to the Emergency Department without delay if any worse. HOME CARE INSTRUCTIONS & INFORMATION: Thank you for choosing us for your medical needs. We hope you're satisfied with the care you received. After you leave, you must properly care for your problem and, at the same time, observe its progress. Any condition can change. Some illnesses can change rapidly over hours or days. If your condition worsens, return to the Emergency Department or see your physician promptly. ABOUT YOUR X-RAYS AND EKG'S: If you had an EKG or X-rays taken, they have been read by the Emergency Physician. The X-rays and EKG's will also be read by a Radiologist or Compliance Specialist within 24 hours. If discrepancies are noted, you will be notified by telephone. Please be certain the ED has a correct telephone number & address where you can be reached. Also, realize that some fractures or abnormalities do not show up on initial X-rays. If your symptoms continue, see your physician. ABOUT YOUR LABORATORY TEST: If you had laboratory tests, the results have been reviewed by the Emergency Physician. Some test results (for example cultures) may not be available for several days. You will be contacted if any test result shows you need additional treatment. Please be certain the ED has a correct telephone number and address where you can be reached. ABOUT YOUR MEDICATIONS: You will receive instructions on how to take your medicine on the prescription label you receive. Additional information may be provided by the Pharmacy. If you have questions afterwards, call the ED for clarification or further instructions. Some prescribed medications may cause drowsiness. Do not perform tasks such as driving a car or operating machinery without consulting your Pharmacist. If you feel you need a refill of pain medication, your condition will need re-evaluation. Please do not call for a refill of any medication. ABOUT YOUR SIGNATURE: Signature of this document acknowledges to followin. Understanding that you received emergency treatment and that you may be released before al medical problems are known or treated. Please be certain the ED has a correct phone number & address where you can be reached. 2. Acknowledgement that you will arrange for follow-up care as recommended. 3. Authorization for the Emergency Physician to provide information to your follow-up Physician in order to maximize your care. AT ANY TIME, IF YOUR SYMPTOMS CHANGE SIGNIFICANTLY OR WORSEN OR YOU DEVELOP NEW SYMPTOMS, RETURN TO THE EMERGENCY DEPARTMENT IMMEDIATELY FOR RE-EVALUATION. OUR GOAL IS TO PROVIDE EXCELLENT MEDICAL CARE! WE HOPE THAT WE HAVE MET YOUR EXPECTATIONS DURING YOUR EMERGENCY DEPARTMENT VISIT AND THAT YOU FEEL YOU HAVE RECEIVED EXCELLENT CARE! Prescriptions: Prednisone [Deltasone 20 mg Tablet] 3 tab PO DAILY 6 Days #18 tablet Valacyclovir HCl [Valacyclovir] 1,000 mg PO TID 7 Days #21 tablet Referrals: EDUIN EVANS MD [ACTIVE STAFF] - Follow up as needed I personally performed the services described in the documentation, reviewed and edited the documentation which was dictated to the scribe in my presence, and it accurately records my words and actions.
[2020-04-16] MEDS ORDERED: PREDNISONE 20 MG TABLET PO ONE (04:04)
[2020-04-16] MEDS ORDERED: VALACYCLOVIR HCL 500 MG TABLET PO ONE (04:05)
[2020-04-16 04:38] LABS: APPEARANCE,URINE SLIGHTLY-CLOUDY; BILIRUBIN,URINE NEGATIVE (NEGATIVE); COLOR,URINE YELLOW; GLUCOSE, URINE NEGATIVE (NEGATIVE); KETONES,URINE NEGATIVE (NEGATIVE); LEUKOCYTE ESTERASE,URINE NEGATIVE (NEGATIVE); NITRITE,URINE NEGATIVE (NEGATIVE); PROTEIN,URINE NEGATIVE (NEGATIVE); URINE SPECIFIC GRAVITY 1.021; UROBILINOGEN,URINE NEGATIVE mg/dL (<2.0)
--- NOTE | 2020-04-16 04:51 | ER Document Report ---
Entered by JUAN ANTONIO ARAIZA SCRIBE 04/16/20 0226 Acting as scribe for:WINNIE COTTER IV, MD ED NIH Stroke Scale - NIH Stroke Scale When completed:: Protocol *: 1. NIH scale should be completed with appropriate accompanying assessment tools. *: 2. The NIH should reflect what the patient is capable of doing and should not be coached by the clinician. 1a. Level of Consciousness: 0=Alert;keenly responsive -: 1=Drowsy -: 2=Obtunded -: 3=Coma/unresponsive or reflex to noxious stimuli. 1a. Responses: 0 1b. Orientation Questions: a. What month is it? -: b. How old are you? -: 0=Answers both questions correctly. -: 1=Answers one question correctly or patient is intubated or has orotracheal trauma. -: 2=Answers neither question correctly. 1b. Responses: 0 1c. Response to commands: a. Open and close eyes? -: b. Scientific Illustrator and release hand? -: Credit is given despite weakness. Demonstration of task is permitted. Substitute command if hands cannot be used. -: 0=Performs both tasks correctly -: 1=Performs one task correctly -: 2=Performs neither task correctly 1c. Responses: 0 2. Gaze: Establish eye contact and instruct patient to "Follow my finger" -: 0=Normal -: 1=Partial gaze palsy. Gaze is abnormal in one or both eyes, but where forced deviation or total gaze paresis is not present. -: 2=Forced deviation or total gaze paresis. 2. Responses: 0 3. Visual Sears: Sees fingers in all four quadrants. -: 0=No visual loss. -: 1=Partial hemianopsia. -: 2=Complete hemianopsia. -: 3=Bilateral hemianopsia (including Cortical blindness) 3. Responses: 0 4. Facial Movement: Instruct patient to: -: a. Show me your teeth -: b. Raise your eyebrows -: c. Close your eyes -: d. Smile -: 0=Normal symmetrical movement -: 1=Minor paralysis (flattened nasolabial fold, asymmetry on smiling). -: 2=Partial paralysis (total or near total paralysis of lower face). -: 3=Complete paralysis of upper and lower face 4. Responses: 1 5. Motor functions (left arm): Alternate sides and extend each arm with palms down (90 degrees if sitting or 45 degrees for supine). -: 0=No drift;limb holds for full 10 seconds. -: 1=Drift; limb holds but drifts down before full 10 seconds, but does not hit bed. -: 2=Some effort against gravity; limb cannot get to or maintain position. -: 3=No effort against gravity; limb falls. -: 4=No movement. -: UN=Amputation, joint fusion, explain in comments. 5. Responses (left arm): 0 5. Motor Functions (right arm): Alternate sides and extend each arm with palms down (90 degrees if sitting or 45 degrees for supine). -: 0=No drift;limb holds for full 10 seconds. -: 1=Drift; limb holds but drifts down before full 10 seconds, but does not hit bed. -: 2=Some effort against gravity; limb cannot get to or maintain position. -: 3=No effort against gravity; limb falls. -: 4=No movement. -: UN=Amputation, joint fusion, explain in comments. 5. Responses (right arm): 0 6. Motor Functions (left leg): With patient lying supine, alternate sides and extend each leg (30 degrees always while supine). -: 0=No drift, leg holds position for full 5 seconds -: 1=Drift; leg falls before full 5 seconds but does not hit bed. -: 2=Some effort against gravity, leg falls to bed but some effort against gravity. -: 3=No effort against gravity, leg falls to bed immediately. -: 4=No movement. -: UN=Amputation, joint fusion; explain in comments. 6. Responses (left leg): 0 6. Motor Functions (right leg): With patient lying supine, alternate sides and extend each leg (30 degrees always while supine). -: 0=No drift, leg holds position for full 5 seconds -: 1=Drift; leg falls before full 5 seconds but does not hit bed. -: 2=Some effort against gravity, leg falls to bed but some effort against gravity. -: 3=No effort against gravity, leg falls to bed immediately. -: 4=No movement. -: UN=Amputation, joint fusion; explain in comments. 6. Responses (right leg): 0 7. Limb Ataxia: With eyes open instruct patient to: -: a. "Touch your finger to your nose". -: b. "Touch your heel to your wilson" -: 0=Absent -: 1=Present in one limb. -: 2=Present in two limbs. -: UN=Amputation or joint fusion; explain in comments. 7. Responses: 0 8. Sensory: Test sensation using pinprick or noxious stimuli. Test as many body parts as possible. -: 0=Normal;no sensory loss -: 1=Mile to moderate sensory loss (patient feels pin prick but is less sharp on affected side). -: 2=Severe or total sensory loss. 8. Responses: 0 9. Best Language: Instruct patient to: -: a. "Describe what you see in this picture." -: b. "Name the items in this picture." -: c. "Read these sentences." -: 0=No aphasia, normal -: 1=Mild to moderate aphasia. -: 2=Severe aphasia -: 3=Mute, global aphasia, no usable speech or auditory comprehension. 9. Responses: 0 10. Articulation, Dysarthia: Instruct patient to: -: "Read these words" or "Repeat these words" -: 0=Normal -: 1=Mild to moderate; patient may slur some words but can be understood without difficulty. -: 2=Severe; patients speech so slurred as to be unintelligible in the absence of dysphasia. -: UN=Intubated or other physical barrier, explain in comments. 10. Responses: 0 11. Extinction or inattention: 0=No abnormality -: 1= Visual, tactile, auditory, spatial, or personal inattention or extinction to bilateral simulation in one or the sensory modalities. -: 2=Profound chet-inattention or chet-inattention to more than one modality; does not recognize own hand. 11. Responses: 0 Total Score: 1 I personally performed the services described in the documentation, reviewed and edited the documentation which was dictated to the scribe in my presence, and it accurately records my words and actions.
[2020-04-16 05:24] VITALS: BP 137/101
== END 2020-04-16 05:24 | disposition home or self-care (01) ==
LOC: ER 02:00
DX: O99.353 Diseases of the nervous system complicating pregnancy, third trimester (principal); G51.0 Bell's palsy; O16.3 Unspecified maternal hypertension, third trimester; O26.893 Other specified pregnancy related conditions, third trimester; R53.1 Weakness; Z79.899 Other long term (current) drug therapy; Z3A.33 33 weeks gestation of pregnancy
CPT/HCPCS: 99284; 96360; 96361; 36415; 85025; 80053; 81001; 70450; J3490 ×2; J7512; J7030

== ENCOUNTER 2020-05-07 15:14 | Outpatient (CLI) | payer MEDICAID ==
[2020-05-07 16:16] LABS: APPEARANCE,URINE SLIGHTLY-CLOUDY; BILIRUBIN,URINE NEGATIVE (NEGATIVE); COLOR,URINE AMBER; GLUCOSE, URINE NEGATIVE (NEGATIVE); KETONES,URINE NEGATIVE (NEGATIVE); LEUKOCYTE ESTERASE,URINE MODERATE (NEGATIVE); NITRITE,URINE NEGATIVE (NEGATIVE); PROTEIN,URINE 30 mg/dL (NEGATIVE); URINE SPECIFIC GRAVITY 1.026
[2020-05-07 16:32] LABS: URINE BARBITURATES SCREEN NEGATIVE; URINE BENZODIAZEPINES SCREEN NEGATIVE; URINE COCAINE SCREEN NEGATIVE; URINE MARIJUANA (THC) SCREEN NEGATIVE; URINE METHADONE SCREEN NEGATIVE; URINE PHENCYCLIDINE SCREEN NEGATIVE
[2020-05-07 16:38] LABS: UR PRO/CREAT RATIO RESULT 0.1 mg/mg (0.0-0.2); URINE PROTEIN 17.7 mg/dL (<12)
[2020-05-07 16:46] LABS: HEMATOCRIT 28.6 % (36.0-47.0); HEMOGLOBIN 9.4 g/dL (12.0-15.5); MEAN CORPUSCULAR HEMOGLOBIN 27.1 pg (27.0-33.4); MEAN CORPUSCULAR VOLUME 82 fl (80-97); PLATELET COUNT 322 10^3/uL (150-450); RED BLOOD COUNT 3.48 10^6/uL (3.72-5.28); RED CELL DISTRIBUTION WIDTH 13.6 % (11.5-14.0); WHITE BLOOD COUNT 8.6 10^3/uL (4.0-10.5)
[2020-05-07 17:03] LABS: ALBUMIN 2.9 g/dL (3.5-5.0); ALKALINE PHOSPHATASE 155 U/L (38-126); ASPARTATE AMINO TRANSFERASE 27 U/L (14-36); BILIRUBIN,TOTAL 0.3 mg/dL (0.2-1.3); BLOOD UREA NITROGEN 13 mg/dL (7-20); CALCIUM 8.5 mg/dL (8.4-10.2); CHLORIDE 107 mmol/L (98-107); GLUCOSE 106 mg/dL (75-110); POTASSIUM 4.2 mmol/L (3.6-5.0); TOTAL PROTEIN 5.8 g/dL (6.3-8.2); URIC ACID 5.9 mg/dL (2.5-6.2)
[2020-05-07 17:08] LABS: ANION GAP 3 (5-19); CARBON DIOXIDE 23 mmol/L (22-30)
--- NOTE | 2020-05-07 17:26 | RADIOLOGY REPORT (SQ) ---
EXAM DESCRIPTION: U/S OB LIMITED IMAGES COMPLETED DATE/TIME: 05/07/2020 5:13 pm REASON FOR STUDY: growth/josias/postion COMPARISON: 03/22/2020 TECHNIQUE: Limited transabdominal grayscale ultrasound for evaluation of specific requested obstetri kate parameters. LIMITATIONS: None. FINDINGS: CERVICAL LENGTH: 3.4 cm. Closed. JOSIAS: 19.6 cm. FHR: 135 beats per minute. PRESENTATION: Breech PLACENTA: Posterior ANATOMY: Not assessed OTHER: Estimated body weight 3133 g. That is the 59th percentile. Ultrasound gestational age 37 weeks 1 day. IMPRESSION: LIMITED OBSTETRICAL ULTRASOUND WITH MEASURED PARAMETERS DELINEATED ABOVE. Trimester of : Third trimester - 28 weeks to delivery. TECHNICAL DOCUMENTATION: JOB ID: [id number] 2010 [employer]- All Rights Reserved Reading location - IP/workstation name: [email or web address]
[2020-05-07 17:48] LABS: CHLAM PCR NOT DETECTED (NOT DETECT)
--- NOTE | 2020-05-07 18:35 | L&D Progress Notes ---
PROGRESS NOTES Datetime Report Generated by CPN: 05/07/2020 18:35 PROGRESS NOTE Comment: She presents with vague complaints today including concern about [place] and being unable to eat because of pressure from the baby. She reports recent meth use as well. Both her and her mother want delivery because of concern for the baby at this time. Her due date is May 31 by a 24 week sono. Her blood pressures are labile. I spoke with Dr Daily. With controlled blood pressures she recomends delivery at 38 weeks. If blood pressures are in poor control we may consider delivery at 37 weeks. I discussed with her that the baby may not be mature with such a poor edc. Pehaps some steroid would be of benefit as well. FETUS A FHR - Baseline: 120 Variability: Moderate 6-25bpm : 36.0 SIGNATURE SIGNATURE: [id number] Signature: with User ID: [email or web address]
--- NOTE | 2020-05-07 18:39 | Admission Physical ---
Datetime Report Generated by CPN: 05/07/2020 18:38 CURRENT ADMISSION Chief Complaint: Other Chief Complaint Other: Evaluate blood pressure. Indication for Induction: Not Applicable Admit Impression : , Intrauterine ; Intact Membranes; Observation/Evaluation Admit Plan: Admit to Unit ALLERGIES Medication Allergies: Unknown Medication Allergies: hydrocodone (04/03/2020) Latex: No Latex Allergies Food Allergies: none Environmental Allergies: none OBSTETRICAL HISTORY EDC: 05/31/2020 00:00 : 4 Para: 3 Term: 3 : 0 SAB: 0 IAB: 0 Ectopic: 0 Livin Cesareans: 0 VBACs: 0 Multiple Births: 0 INFECTIOUS HISTORY Chlamydia: Yes Infectious History Comments: Chlamydia in March 2020. Pt stated she took all her abx bu has not had a ROSS PHYSICAL EXAM General: Normal HEENT: Normal Neurologic: Normal Thyroid: Normal Heart: Normal Lungs: Normal Breast: Deferred Back: Normal Abdomen: Normal Genitourinary Exam: Normal Extremities: Normal DTRs: Normal Pelvic Type: Adequate Vital Signs: Reviewed VAGINAL EXAM Dilatation: 0 FETUS A EGA: 36.4 Monitoring: External US FHR- Baseline: 120 Variability: Moderate 6-25bpm Decelerations: None FHR Category: Category I Presentation: Breech Admit Comment: Plan 24 hour urine protein. Will give steroids to promote lung maturity as well. Please see plan on separate progress note. INFORMED CONSENT Signature: with User ID: [email or web address]
[2020-05-07] MEDS ORDERED: BETAMET ACET/BETAMET NA INJ 6 MG/1 ML ONE (18:51)
[2020-05-07] MEDS ORDERED: LABETALOL HCL 200 MG TABLET ONE (18:51)
[2020-05-07] MEDS ORDERED: LABETALOL HCL 200 MG TABLET PO ONE (18:54)
[2020-05-07] MEDS ORDERED: BETAMET ACET/BETAMET NA INJ 6 MG/1 ML IM ONE (18:55)
--- NOTE | 2020-05-07 19:04 | L&D Progress Notes ---
PROGRESS NOTES Datetime Report Generated by CPN: 05/07/2020 19:04 PROGRESS NOTE Comment: She and her mother would like to get more maturity for the baby. They also do not agree to stay. She will do the 24 hour urine protein and plans to keep her appt on Thursday. We also discussed that [facility] could be consulted for a second opinion. There is risk present with both early delivery as well as waiting. They seem to understand. VAGINAL EXAM Dilatation: 0 FETUS A FHR - Baseline: 120 Variability: Moderate 6-25bpm : 36.0 Presentation: Breech SIGNATURE SIGNATURE: [id number];[id number] Signature: with User ID: [email or web address]
--- NOTE | 2020-05-07 20:14 | Non Stress Test Report ---
Non Stress Test Datetime Report Generated by CPN: 05/07/2020 20:14 DEMOGRAPHIC EGA NST: 36.4 INDICATION Indication for Study (NST) Other: provider orders VITAL SIGNS Temperature - NST: 97.8 Pulse - NST: 96 RESP - NST: 18 NBPSYS NST: 136 NBPDIA NST: 105 MONITORING Monitor Explained: Monitor Explained; Test Explained; Patient Verbalized Understanding Time on Monitor: 05/07/2020 15:57 Time off Monitor: 05/07/2020 19:29 NST Duration: 212 NST INTERVENTIONS NST Interventions: PO Hydration; Reposition Patient Physician Notified NST: Dr Rodríguez BABY A: [id number] BABY A Movement : Present Contraction Frequency : none FHR Baseline : 130 Accelerations : 15X15 Decelerations : None Variability : Moderate 6-25bpm NST Review: Meets Criteria for Reactive NST NST Review and Verified By : Lesly Paz RN NST Results: Reactive NST REPORT Report Trigger: Send Report
== END 2020-05-07 20:20 | disposition home or self-care (01) ==
LOC: LC 15:14
PROVIDERS: ATTEND Obstetrics & Gynecology
DX: O14.93 Unspecified pre-eclampsia, third trimester (principal); O98.813 Other maternal infectious and parasitic diseases complicating pregnancy, third trimester; O09.33 Supervision of pregnancy with insufficient antenatal care, third trimester; Z3A.36 36 weeks gestation of pregnancy; Z88.6 Allergy status to analgesic agent
CPT/HCPCS: 59025; 86900; 86901; 36415; 86850; 83615; 84156; 84550; 82570; 85027; 86592; 80053; 81001; 87081; 80307 ×2; 87491; 87591; 76815; G0480; J3490; J0702

== ENCOUNTER 2020-05-11 04:03 | Inpatient (IN) | payer MEDICAID ==
[2020-05-11] MEDS ORDERED: RINGERS SOLUTION,LACTATED 1,000 ML IV ONE (04:11)
[2020-05-11] MEDS ORDERED: OXYTOCIN/0.9 % SODIUM CHLORIDE 30 UNIT/500 ML RTUINJ IV PRN ×3 (04:11→16:02)
[2020-05-11] MEDS ORDERED: PENICILLIN G POTASSIUM 5,000,000 UNIT in DEXTROSE 5%-WATER 100 ML IV ONE (04:14)
[2020-05-11] MEDS ORDERED: OXYTOCIN 10 UNIT/ML VIAL ONE (04:18)
[2020-05-11] MEDS ORDERED: LIDOCAINE 1% INJ-PF (10 MG/ML) 30 ML SDV ONE (04:19)
[2020-05-11] MEDS ORDERED: PENICILLIN G-K 5 MILLION UNIT VIAL ONE ×3 (04:19→13:13)
[2020-05-11] MEDS ORDERED: OXYTOCIN/0.9 % SODIUM CHLORIDE 30 UNIT/500 ML RTUINJ ONE (04:19)
[2020-05-11] MEDS ORDERED: MISOPROSTOL 0.2 MG TABLET ONE (04:19)
[2020-05-11 04:53] LABS: ABSOLUTE BASOPHILS # (AUTO) 0.1 10^3/uL (0.0-0.2); ABSOLUTE EOSINOPHILS # (AUTO) 0.1 10^3/uL (0.0-0.6); ABSOLUTE MONOCYTES (AUTO) 0.6 10^3/uL (0.1-1.4); ABSOLUTE NEUT (AUTO) 6.6 10^3/uL (1.7-8.2); BASOPHILS % (AUTO) 0.5 % (0-2); EOSINOPHILS % (AUTO) 0.6 % (0-6); HEMATOCRIT 27.6 % (36.0-47.0); HEMOGLOBIN 9.6 g/dL (12.0-15.5); LYMPHOCYTES % (AUTO) 29.2 % (13-45); MEAN CORPUSCULAR HEMOGLOBIN 27.6 pg (27.0-33.4); MEAN CORPUSCULAR HGB CONC 34.7 g/dL (32.0-36.0); MEAN CORPUSCULAR VOLUME 80 fl (80-97); MONOCYTES % (AUTO) 5.9 % (3-13); PLATELET COUNT 318 10^3/uL (150-450); RED BLOOD COUNT 3.46 10^6/uL (3.72-5.28); RED CELL DISTRIBUTION WIDTH 13.5 % (11.5-14.0); SEGMENTED NEUTROPHILS % (AUTO) 63.8 % (42-78); TOTAL CELLS COUNTED % (AUTO) 100 %; WHITE BLOOD COUNT 10.3 10^3/uL (4.0-10.5)
[2020-05-11] MEDS ORDERED: MAG HYDROX/AL HYDROX/SIMETH SUSP 30 ML UDCUP PO PRN (05:24)
[2020-05-11] MEDS ORDERED: MAG HYDROX/AL HYDROX/SIMETH SUSP 30 ML UDCUP ONE ×2 (05:26→10:50)
[2020-05-11] MEDS: RINGERS SOLUTION,LACTATED 1,000 ML IV PRN ×2 (05:28→09:52)
[2020-05-11 06:22] LABS: CHLAM PCR NOT DETECTED (NOT DETECT)
[2020-05-11] MEDS ORDERED: LABETALOL HCL 200 MG TABLET ONE (08:40)
[2020-05-11] MEDS ORDERED: EPHEDRINE SULFATE INJ 50 MG/1 ML AMPULE ONE (08:40)
[2020-05-11] MEDS ORDERED: FENTANYL/BUPIVACAINE/NS/PF 300 MCG/150 ML RTUINJ EPI ONE (08:40)
[2020-05-11] MEDS ORDERED: ROPIVACAINE HCL 0.2% INJ/PF (2 MG/ML) 20 ML SDV ONE (08:41)
[2020-05-11] MEDS ORDERED: HYDRALAZINE HCL INJ/PF 20 MG/1 ML SDV IV ONE ×3 (08:50→18:09)
[2020-05-11] MEDS ORDERED: LABETALOL HCL 200 MG TABLET PO ONE (08:50)
[2020-05-11] MEDS ORDERED: HYDRALAZINE HCL INJ/PF 20 MG/1 ML SDV ONE ×3 (08:51→17:57)
[2020-05-11] MEDS: PENICILLIN G POTASSIUM 2,500,000 UNIT in DEXTROSE 5%-WATER 50 ML IV SCH ×3 (09:03→17:18)
--- NOTE | 2020-05-11 09:53 | Admission Physical ---
Datetime Report Generated by CPN: 05/11/2020 09:52 CURRENT ADMISSION Chief Complaint: Uterine Contractions; Scheduled Induction of Labor Chief Complaint Other: Evaluate blood pressure. Indication for Induction: Eclampsia-Mild Admit Impression : Term, Intrauterine ; No Active Labor; Intact Membranes; Induction of Labor Admit Plan: Admit to Unit; Initiate Labor Induction Protocol ALLERGIES Medication Allergies: No Medication Allergies: No Known Allergies (05/10/2020) Latex: No Latex Allergies Food Allergies: none Environmental Allergies: none OBSTETRICAL HISTORY EDC: 05/31/2020 00:00 : 4 Para: 3 Term: 3 : 0 SAB: 0 IAB: 0 Ectopic: 0 Livin Cesareans: 0 VBACs: 0 Multiple Births: 0 Gestational Diabetes: No Rh Sensitization: No Incompetent Cervix: No RICH: No Infertility: No ART Treatment: No Uterine Anomaly: No IUGR: No Hx Previous C/S: No Macrosomia: No Hx Loss/Stillborn: No PIH: Yes Hx : No Placenta Previa/Abruption: No Depression/PP Depression: No PTL/PROM: No Post Hemorrhage: No Current Procedures: Ultrasound; NST Obstetrical History Comments: 2011 NVSD Boy [id number] NVSD Girl 2016 NVSD Boy SEE RECORDS Alcohol: No Marijuana : No Cocaine: No Other Illicit Drugs: Yes Illicit Drug Comments: Used Meth during Cigarettes: Current Everyday Smoker. 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 Pt stated she took all her abx bu has not had a ROSS PHYSICAL EXAM General: Normal HEENT: Normal Neurologic: Normal Thyroid: Deferred Heart: Normal Lungs: Normal Breast: Deferred Back: Normal Abdomen: Normal Genitourinary Exam: Normal Extremities: Normal DTRs: Normal Pelvic Type: Adequate Vital Signs: Reviewed VAGINAL EXAM Dilatation: 2 Effacement: 50 Station: -3 Contraction Comments: q 2-3 MEMBRANES Membranes: Intact FETUS A EGA: 37.1 Monitoring: External US FHR- Baseline: 145 Variability: Moderate 6-25bpm Accelerations: 15X15 Decelerations: None (Annotations: Data stored by CPN on behalf of user) FHR Category: Category II Presentation: Vertex Admit Comment: 24yo at 37+1ega for preE likely compounded by continued methamphetamine use. Hep C + - no FSE in labor. GBS positive. Anxiety/Bipolar no meds. TObacco abuse. Failed 1 hr GTT - passed 3 hr. Late to care with limited care. strategic planner placed. Rh negaive.Breech on 05/07 but on US at bedside today Vertex. PCN for GBS positve. Anticipate . Nursery aware of patient. Also patients 1 yr old is apparently admitted to the floor for dehydration and n/v PLANS FOR LABOR AND DELIVERY Labor and Delivery: None Pain Management: Medications; Epidural Feeding Preference: Formula Benefit of Breast Feed Discussed: Yes Circumcision: N/A INFORMED CONSENT Informed Consent Obtained: Vaginal Delivery; Induction of Labor; Risks, Benefits and Alternatives Discussed Signature: with User ID: [email or web address]
[2020-05-11] MEDS ORDERED: MAG HYDROX/AL HYDROX/SIMETH SUSP 30 ML UDCUP PO ONE (11:15)
[2020-05-11] MEDS ORDERED: ONDANSETRON HCL INJ/PF 4 MG/2 ML SDV IV PRN (13:00)
[2020-05-11] MEDS ORDERED: ONDANSETRON HCL INJ/PF 4 MG/2 ML SDV ONE (13:00)
[2020-05-11] MEDS ORDERED: DIPHENHYDRAMINE HCL 25 MG CAPSULE PO PRN (16:02)
[2020-05-11] MEDS ORDERED: GLYCERIN/WITCH HAZEL LEAF 1 EACH MED..WIPE TP PRN (16:02)
[2020-05-11] MEDS ORDERED: DIBUCAINE 1% OINTMENT 28 GM TP PRN (16:02)
[2020-05-11] MEDS ORDERED: MAGNESIUM HYDROXIDE SUSP 30 ML UDCUP PO PRN (16:02)
[2020-05-11] MEDS ORDERED: DIPH/PERTUSS(ACELL)/TETANUS VAC/PF 0.5 ML SYR (>=10YO) IM PRN (16:02)
[2020-05-11] MEDS ORDERED: MEASLES,MUMPS&RUBELLA VACC/PF 0.5 ML VIAL SUBCUT PRN (16:02)
[2020-05-11] MEDS ORDERED: NA PHOS,M-B/NA PHOS,DI-BA (ADULT) 133 ML ENEMA PR PRN (16:02)
[2020-05-11] MEDS ORDERED: PROMETHAZINE HCL 25 MG TABLET PO PRN (16:02)
[2020-05-11] MEDS ORDERED: PROMETHAZINE HCL 25 MG SUPP.RECT PR PRN (16:02)
[2020-05-11] MEDS ORDERED: BENZOCAINE/MENTHOL AEROSOL SPRAY 56 ML TOP PRN (16:02)
[2020-05-11] MEDS ORDERED: ACETAMINOPHEN 650 MG SUPP.RECT PR PRN (16:02)
[2020-05-11] MEDS ORDERED: PROMETHAZINE HCL INJ 25 MG/1 ML VIAL IV PRN (16:02)
[2020-05-11] MEDS ORDERED: ZOLPIDEM TARTRATE 5 MG TABLET PO PRN (16:02)
[2020-05-11] MEDS ORDERED: IBUPROFEN 800 MG TABLET ONE (16:37)
[2020-05-11] MEDS: IBUPROFEN 800 MG TABLET PO SCH (16:47)
[2020-05-11 17:26] LABS: URINE BARBITURATES SCREEN NEGATIVE; URINE BENZODIAZEPINES SCREEN NEGATIVE; URINE COCAINE SCREEN NEGATIVE; URINE MARIJUANA (THC) SCREEN NEGATIVE; URINE METHADONE SCREEN NEGATIVE; URINE PHENCYCLIDINE SCREEN NEGATIVE
[2020-05-11 17:28] LABS: URINE AMPHETAMINES SCREEN UNCONFIRMED POSITIVE
--- NOTE | 2020-05-11 17:54 | Delivery Summary ---
Del Sum A-C Datetime Report Generated by CPN: 05/11/2020 17:54 DELIVERY PERSONNEL DELIVERY PERSONNEL: [id number] Delivery Doctor:: Jennifer Perez MD Labor and Delivery Nurse:: Hoda Hurley RNcommunications consultant Nurse:: BRITTANY Boland Nursery Nurse:: Donna Dodson RN Vice President [employer]/JUNIOR DATA ANALYST: Fartun Calderon, ST MATERNAL INFORMATION Delivery Anesthesia: Epidural Medications After Delivery: Pitocin 30 Units in 500ml NS/D5W Estimated Blood Loss (ml): 300 Delivery QBL: 300 Maternal Complications: Other Complication Details: known drug use Provider Comments: VFI delivered in ANAND presentation with nuchal cord reduced. Shoulders and body delivered without difficulty. Cord doubly clamped and cut and infant to maternal abdomen for NRP. Placenta delivered intact spontaneously. FF at U. No perineal lacerations. Mother and baby stable upon provider leaving the room LABOR SUMMARY EDC: 05/31/2020 00:00 No. Babies in Womb: 1 Attempted: No Labor Anesthesia: Epidural LABOR INFORMATION Reason for Induction: Chronic Primary/Essential HTN Onset of Labor: 05/11/2020 12:56 Complete Dilatation: 05/11/2020 16:00 Oxytocin: Induction Group B Beta Strep: unknown Antibiotics # of Doses: 3 Antibiotics Time of Last Dose: 1318 Name of Antibiotic Given: PCN Steroids Given: None Reason Steroids Not Administered: Not Applicable MEMBRANES Membranes Rupture Method: Artificial Rupture of Membranes: 05/11/2020 12:56 Length of Rupture (hr): 3.38 Amniotic Fluid Color: Clear Amniotic Fluid Amount: Large Amniotic Fluid Odor: Normal STAGES OF LABOR Stage 1 hr: 3 Stage 1 min: 4 Stage 2 hr: 0 Stage 2 min: 19 Stage 3 hr: 0 Stage 3 min: 3 Total Time in Labor hr: 3 Total Time in Labor min: 26 VAGINAL DELIVERY Episiotomy: None Laceration #1: None Laceration Extension #1: N/A Laceration Repair: Not Applicable Sponge Count Correct: N/A Sharps Count Correct: N/A CSECTION DELIVERY Primary Indication: N/A Secondary Indication: N/A CSection Incidence: N/A Labor: N/A Elective: N/A CSection Incision: N/A BABY A INFORMATION Infant Delivery Date/Time: 05/11/2020 16:19 Method of Delivery: Vaginal Nurse Controlled Delivery: No Born in Route : No : N/A Forceps: N/A Vacuum Extraction: N/A Shoulder Dystocia : No PRESENTATION/POSITION BABY A Presentation: Cephalic Cephalic Presentation: Vertex Vertex Position: Left Occipital Anterior Breech Presentation: N/A PLACENTA INFORMATION BABY A Placenta Delivery Time : 05/11/2020 16:22 Placenta Method of Delivery: Spontaneous Placenta Status: Delivered SCORES BABY A Heart Rate 1 min: >100 bpm Resp Effort 1 min: Good Cry Reflex Irritability 1 min: Cough or Sneeze or Pulls Away Muscle Tone 1 min: Active Motion Color 1 min: Blue/Pale SCORE 1 MIN: 8 Heart Rate 5 min: >100 bpm Resp Effort 5 min: Good Cry Reflex Irritability 5 min: Cough or Sneeze or Pulls Away Muscle Tone 5 min: Active Motion Color 5 min: Body [place], Extremities Blue SCORE 5 MIN: 9 INFORMATION BABY A Gestational Age at Delivery: 37.1 Gestational Status: Early Term- 37- 38.6 Weeks Infant Outcome : Liveborn Infant Condition : Stable Infant Sex: Female IDENTIFICATION BABY A Infant Verification Date/Time: 05/11/2020 16:45 ID Band Number: [id number] Mother's Name Verified: Yes RN Verifying : Evangelina Camp RNC Additional Verifying Personnel: Rogelio Hurley RN WEIGHT/LENGTH BABY A Birthweight (gm): 3340 Infant Weight (lb): 7 Weight (oz): 6 Length (in): 19.50 Length (cm): 49.53 CORD INFORMATION BABY A No. Cord Vessels: 3 Nuchal Cord : Around Neck x1, Loose Cord Blood Taken: Yes-For Eval (Mom's Blood Type - or O+) Suction: None ASSESSMENT BABY A Infant Complications: Other Infant Complications- Other: 37.1 Physical Findings at Delivery: Within Normal Limits Infant Respirations: Appears Normal Skin to Skin: Yes Academic Affairs Dean/ALS Called : No Care By: Donna Crimm RN Transferred To: Remains with Mother BABY B INFORMATION : N/A SIGNATURES Signature: with User ID: [email or web address]
[2020-05-11] MEDS: ACETAMINOPHEN WITH CODEINE #3 TABLET PO PRN (19:12)
[2020-05-11] MEDS ORDERED: LABETALOL HCL 200 MG TABLET PO SCH (22:00)
[2020-05-11] MEDS: FAMOTIDINE 20 MG TABLET PO SCH (22:17)
[2020-05-11] MEDS: LABETALOL HCL 200 MG TABLET PO SCH (22:18)
[2020-05-12] MEDS: IBUPROFEN 800 MG TABLET PO SCH ×3 (02:55→18:53)
[2020-05-12] MEDS: ACETAMINOPHEN WITH CODEINE #3 TABLET PO PRN ×3 (03:48→21:32)
[2020-05-12] MEDS: LABETALOL HCL 200 MG TABLET PO SCH ×3 (05:57→21:32)
[2020-05-12 07:13] LABS: HEMATOCRIT 21.4 % (36.0-47.0); MEAN CORPUSCULAR HEMOGLOBIN 26.9 pg (27.0-33.4); MEAN CORPUSCULAR HGB CONC 33.7 g/dL (32.0-36.0); MEAN CORPUSCULAR VOLUME 80 fl (80-97); PLATELET COUNT 288 10^3/uL (150-450); RED BLOOD COUNT 2.68 10^6/uL (3.72-5.28); RED CELL DISTRIBUTION WIDTH 13.9 % (11.5-14.0); WHITE BLOOD COUNT 15.7 10^3/uL (4.0-10.5)
[2020-05-12 07:33] LABS: HEMOGLOBIN 7.2 g/dL (12.0-15.5)
[2020-05-12] MEDS: DOCUSATE SODIUM 100 MG CAPSULE PO SCH ×3 (10:55→19:31)
[2020-05-12] MEDS: FERROUS SULFATE 325 MG TABLET PO SCH ×3 (10:55→19:31)
[2020-05-12] MEDS: PRENATAL VITAMIN W DHA CAPSULE PO SCH (10:55)
[2020-05-12] MEDS: VALACYCLOVIR HCL 500 MG TABLET PO SCH ×3 (10:55→21:32)
[2020-05-12] MEDS: FAMOTIDINE 20 MG TABLET PO SCH ×2 (10:55→21:55)
[2020-05-12] MEDS: SENNOSIDES/DOCUSATE 8.6-50 MG 1 EACH TABLET PO SCH (10:55)
[2020-05-12] MEDS: PREDNISONE 20 MG TABLET PO SCH (10:56)
--- NOTE | 2020-05-12 11:01 | PDOC PROGRESS REPORT ---
Subjective-OB Progress Note for:: 05/12/20 - PP Day #1, doing well, denies feeling dizzy or SOB. Hx of Fuentes's Palsy this . Anemia. Pt is A negative, may need Rhogam. bottlefeeding, IOL d/t Pre-eclampsia Physical Exam (OB) Vital Signs: Temp Pulse Resp BP Pulse Ox 98.5 F 66 18 141/74 H 100 05/12/20 05:49 05/12/20 05:49 05/12/20 05:49 05/12/20 05:49 05/12/20 05:49 Intake & Output 05/11/20 05/12/20 05/13/20 06:59 06:59 06:59 Intake Total 1050 Output Total 550 Balance 500 Weight 78 kg - General General Appearance: Appears well, Alert - PIH/Pre-Eclampsia DTR's: 1 + Clonus: Negative Headache: Absent Epigastric Pain: No Visual Changes: No - Lochia Lochia Amount: Small 10-25 ml Lochia Color: Rubra/Red - Abdomen Description: Tender, Soft, Round Fundal Description: Firm, Midline Fundal Height: u/u - u/2 - Respiratory Respiratory Status: No respiratory distress - Abdominal Distension: No distension Tenderness: Nontender - Genitourinary Genitourinary Note: voiding - Extremities Upper extremity: Normal inspection Lower extremities: Normal inspection - Neurological Cognition: Normal Orientation: AAOx4 - Psychological Associated symptoms: Normal affect, Normal mood - Skin Skin Temperature: Warm Skin Moisture: Dry Objective-Diagnostic Laboratory: 05/12/20 06:30 05/12/20 05/12/20 06:30 06:30 WBC 15.7 H RBC 2.68 L Hgb 7.2 L D Hct 21.4 L MCV 80 MCH 26.9 L MCHC 33.7 RDW 13.9 Plt Count 288 Blood Type A NEGATIVE Assessment and Plan(PN) - Assessment and Plan (1) Mild pre-eclampsia Qualifiers: Trimester: third trimester Qualified Code(s): O14.03 - Mild to moderate pre-eclampsia, third trimester Is this a current diagnosis for this admission?: Yes (2) Fuentes's palsy complicating Qualifiers: Trimester: third trimester Qualified Code(s): O99.353 - Diseases of the nervous system complicating , third trimester; G51.0 - Fuentes's palsy Is this a current diagnosis for this admission?: Yes (3) Carrier or suspected carrier of group B Streptococcus Is this a current diagnosis for this admission?: Yes (4) Hepatitis C Qualifiers: Viral hepatitis chronicity: chronic Is this a current diagnosis for this admission?: Yes (5) Late care affecting Qualifiers: Trimester: third trimester Qualified Code(s): O09.33 - Supervision of with insufficient care, third trimester Is this a current diagnosis for this admission?: Yes (6) Limited care, antepartum Is this a current diagnosis for this admission?: Yes (7) Methamphetamine addiction Is this a current diagnosis for this admission?: Yes (8) Vaginal delivery Is this a current diagnosis for this admission?: Yes Plan:: IV iron, ambulation encouraged, precautions reviewed. Routine PP orders, Pt on Valtrex and Oral Prednisone for the Fuentes's Palsy - Time Spent with Patient Time with patient: Less than 15 minutes Medications reviewed and adjusted accordingly: Yes - Disposition Anticipated Discharge Disposition: Home, Self Care Anticipated Discharge Timeframe: within 24 hours
[2020-05-12] MEDS ORDERED: IRON SUCROSE COMPLEX INJ/PF 100 MG/5 ML SDV IV ONE (12:00)
[2020-05-13] MEDS: IBUPROFEN 800 MG TABLET PO SCH ×2 (01:25→09:24)
[2020-05-13] MEDS: VALACYCLOVIR HCL 500 MG TABLET PO SCH ×2 (05:11→14:30)
[2020-05-13] MEDS: LABETALOL HCL 200 MG TABLET PO SCH ×2 (05:13→14:29)
[2020-05-13] MEDS: ACETAMINOPHEN WITH CODEINE #3 TABLET PO PRN (05:26)
[2020-05-13] MEDS: FAMOTIDINE 20 MG TABLET PO SCH (09:20)
[2020-05-13] MEDS: FERROUS SULFATE 325 MG TABLET PO SCH (09:20)
[2020-05-13] MEDS: SENNOSIDES/DOCUSATE 8.6-50 MG 1 EACH TABLET PO SCH (09:20)
[2020-05-13] MEDS: PRENATAL VITAMIN W DHA CAPSULE PO SCH (09:20)
[2020-05-13] MEDS: PREDNISONE 20 MG TABLET PO SCH (09:20)
[2020-05-13] MEDS: DOCUSATE SODIUM 100 MG CAPSULE PO SCH (09:20)
--- NOTE | 2020-05-13 10:25 | PDOC DISCHARGE SUMMARY ---
Impression - Admit/DC Date/PCP Admission Date/Primary Care Provider: 05/11/20 04:03 JANICE HALE MD Discharge Date: 05/13/20 - PP Day #2, doing well, denies headache, UOB, voiding - Discharge Diagnosis (1) Mild pre-eclampsia Is this a current diagnosis for this admission?: Yes (2) Fuentes's palsy complicating Is this a current diagnosis for this admission?: Yes (3) Carrier or suspected carrier of group B Streptococcus Is this a current diagnosis for this admission?: Yes (4) Hepatitis C Is this a current diagnosis for this admission?: Yes (5) Late care affecting Is this a current diagnosis for this admission?: Yes (6) Limited care, antepartum Is this a current diagnosis for this admission?: Yes (7) Methamphetamine addiction Is this a current diagnosis for this admission?: Yes (8) Vaginal delivery Is this a current diagnosis for this admission?: Yes - Additional Information Resuscitation Status: Full Code Discharge Diet: As Tolerated Discharge Activity: Activity As Tolerated, No Lifting Over 10 Pounds, Pelvic Rest Referrals: JANICE HALE MD [Primary Care Provider] - Home Medications: No.137/Iron/Folic Acd [ Vitamin Tablet] 1 each PO DAILY 12/10/14 Labetalol HCl 100 mg PO BID 05/07/20 Ferrous Sulfate [Feosol 325 mg Tablet] 325 mg PO BID tablet 05/13/20 Ibuprofen [Motrin 800 mg Tablet] 800 mg PO Q8A tablet 05/13/20 Prednisone [Deltasone 20 mg Tablet] 60 mg PO DAILY tablet 05/13/20 Valacyclovir HCl [Valtrex 500 mg Tablet] 1,000 mg PO Q8 tablet 05/13/20 HPI Reason(s) for Admission: Induction of Labor, Obstetric Complications, PIH Procedures: Ultrasound Intrapartum Procedure(s): Spontaneous Vaginal Delivery Complication(s): Rho (D)Ig Hospital Course Hospital Course: routine Results Laboratory Results: WBC 15.7 10^3/uL (4.0-10.5) H 05/12/20 06:30 RBC 2.68 10^6/uL (3.72-5.28) L 05/12/20 06:30 Hgb 7.2 g/dL (12.0-15.5) L D 05/12/20 06:30 Hct 21.4 % (36.0-47.0) L 05/12/20 06:30 MCV 80 fl (80-97) 05/12/20 06:30 MCH 26.9 pg (27.0-33.4) L 05/12/20 06:30 MCHC 33.7 g/dL (32.0-36.0) 05/12/20 06:30 RDW 13.9 % (11.5-14.0) 05/12/20 06:30 Plt Count 288 10^3/uL (150-450) 05/12/20 06:30 Lymph % (Auto) 29.2 % (13-45) 05/11/20 04:36 [place] % (Auto) 5.9 % (3-13) 05/11/20 04:36 Eos % (Auto) 0.6 % (0-6) 05/11/20 04:36 Baso % (Auto) 0.5 % (0-2) 05/11/20 04:36 Absolute Neuts (auto) 6.6 10^3/uL (1.7-8.2) 05/11/20 04:36 Absolute Lymphs (auto) 3.0 10^3/uL (0.5-4.7) 05/11/20 04:36 Absolute Monos (auto) 0.6 10^3/uL (0.1-1.4) 05/11/20 04:36 Absolute Eos (auto) 0.1 10^3/uL (0.0-0.6) 05/11/20 04:36 Absolute Basos (auto) 0.1 10^3/uL (0.0-0.2) 05/11/20 04:36 Seg Neutrophils % 63.8 % (42-78) 05/11/20 04:36 Urine Opiates Screen NEGATIVE 05/11/20 15:58 Urine Methadone Screen NEGATIVE 05/11/20 15:58 Ur Barbiturates Screen NEGATIVE 05/11/20 15:58 Ur Phencyclidine Scrn NEGATIVE 05/11/20 15:58 Ur Amphetamines Screen UNCONFIRMED POSITIVE 05/11/20 15:58 U Benzodiazepines Scrn NEGATIVE 05/11/20 15:58 Urine Cocaine Screen NEGATIVE 05/11/20 15:58 U Marijuana (THC) Screen NEGATIVE 05/11/20 15:58 RPR Cancelled 05/11/20 04:36 Chlamydia DNA (PCR) NOT DETECTED (NOT DETECT) 05/11/20 04:16 N.gonorrhoeae DNA (PCR) NOT DETECTED (NOT DETECT) 05/11/20 04:16 Blood Type A NEGATIVE 05/12/20 06:30 Antibody Screen POSITIVE 05/11/20 04:36 Antibody Identification RHOGAM INDUCED ANTI-D 05/11/20 04:36 Screen NEGATIVE 05/12/20 06:30 Plan Plan of Treatment: d/c home, f/up with [facility] in one week for BP check Time Spent: Less than 30 Minutes
[2020-05-13 11:06] VITALS: BP 139/81
== END 2020-05-13 13:39 | disposition home or self-care (01) | DRG 806 ==
LOC: LR 04:03 → 2S 18:45
PROVIDERS: ADMIT Obstetrics & Gynecology Gynecology; ATTEND Obstetrics & Gynecology Gynecology
PROC: 10E0XZZ Delivery of Products of Conception, External Approach (ICD-10-PCS; principal; 2020-05-11)
PROC: 10907ZC Drainage of Amniotic Fluid, Therapeutic from Products of Conception, Via Natural or Artificial Opening (ICD-10-PCS; 2020-05-11)
PROC: 10907ZC Drainage of Amniotic Fluid, Therapeutic from Products of Conception, Via Natural or Artificial Opening (ICD-10-PCS; 2020-05-11)
PROC: 3E0234Z Introduction of Serum, Toxoid and Vaccine into Muscle, Percutaneous Approach (ICD-10-PCS; 2020-05-12)
DX: O14.04 Mild to moderate pre-eclampsia, complicating childbirth (principal); O98.42 Viral hepatitis complicating childbirth; Z37.0 Single live birth; F15.20 Other stimulant dependence, uncomplicated; O26.893 Other specified pregnancy related conditions, third trimester; Z67.11 Type A blood, Rh negative; G51.0 Bell's palsy; B19.20 Unspecified viral hepatitis C without hepatic coma; O99.824 Streptococcus B carrier state complicating childbirth; O69.81X0 Labor and delivery complicated by cord around neck, without compression, not applicable or unspecified; O99.353 Diseases of the nervous system complicating pregnancy, third trimester; Z92.241 Personal history of systemic steroid therapy; Z3A.37 37 weeks gestation of pregnancy
CPT/HCPCS: 1967; 36415; 80307; 85025; 85027; 85461; 86850; 86870; 86900; 86901; 87491; 87591; 88307; 94760; C1726; C1758; G0480; J0360; J1756; J2405; J2540; J2590; J2790; J2795; J3010; J3490; J7512